=== PATIENT | female | born 1955 | race African-American/Black ===

== ENCOUNTER 2018-12-03 19:58 | Inpatient (IN) | payer MEDICARE, OTHER ==
[~2018-12-03] VITALS: Ht 167.6 cm; Wt 72.1 kg
[~2018-12-03 19:58] MED LIST: ATOR40TA70; CARV3.1242; CLON0.1T; FURO-151; GLIM4TAB2 PO; HYDR100T26; LISI40TA4; SYN150
[2018-12-03] MEDS ORDERED: MORPHINE SULFATE 4 MG/ML CPJ (NOT FOR IM USE) IV STA (20:53)
[2018-12-03] MEDS ORDERED: ONDANSETRON HCL 4MG/2ML INJ IV STA (20:53)
[2018-12-03] MEDS ORDERED: HYDRALAZINE 20MG/ML VIAL IV ONE (21:15)
[2018-12-03 21:29] LABS: CHLORIDE 95 mEq/L (98-107); EOSINOPHILS % 2.9 % (0.0-5.0); HEMATOCRIT. 40.9 % (36.0-48.0); HEMOGLOBIN. 13.6 g/dL (12.0-16.0); LYMPHOCYTES % 22.8 % (20.0-50.0); MEAN CORPUSCULAR HEMOGLOBIN 31.5 pg (28.0-32.0); MEAN CORPUSCULAR VOLUME 94.8 fL (81.0-99.0); MEAN PLATELET VOLUME 8.4 fl (7.4-10.4); MONOCYTES % 8.7 % (2.0-8.0); NEUTROPHILS % 64.6 % (40.0-76.0); PLATELET 202 x1000/uL (130-400); RED BLOOD CELL COUNT 4.31 mill/uL (4.2-5.4); RED CELL DISTRIBUTION WIDTH 17.9 % (11.6-14.6)
[2018-12-03 21:33] LABS: ETHANOL BLOOD < 10 mg/dL; INR 0.9; PARTIAL THROMBOPLASTIN TIME 28.4 sec (23.4-31.0); PROTHROMBIN TIME 9.7 sec (9.6-11.0)
[2018-12-04] VITALS (8 sets, daily range): BP systolic 120–180; BP diastolic 62–81
[2018-12-04 02:40] LABS: *AMPHETAMINES SCREEN URINE NEGATIVE (NEGATIVE)
[2018-12-04 02:42] LABS: *BARBITURATES SCREEN URINE NEGATIVE (NEGATIVE); *COCAINE SCREEN URINE NEGATIVE (NEGATIVE); CANNABINOID URINE SCREEN NEGATIVE (NEGATIVE); METHADONE URINE SCREEN NEGATIVE (NEGATIVE); OPIATES URINE SCREEN NEGATIVE (NEGATIVE); PHENCYCLIDINE URINE SCREEN NEGATIVE (NEGATIVE)
[2018-12-04 02:43] LABS: *BENZODIAZEPINES SCREEN URINE NEGATIVE (NEGATIVE)
[2018-12-04] MEDS ORDERED: DEXTROSE 50% WATER 50ML SYRINGE IV PRN (03:30)
[2018-12-04] MEDS: HYDROCODONE/ACETAMINOPHEN 5/325MG TABLET PO PRN ×2 (05:55→18:26)
[2018-12-04] MEDS: CLONIDINE 0.2MG TABLET PO PRN ×2 (05:55→21:43)
[2018-12-04] MEDS: INSULIN LISPRO 100 UNITS/ML SUBCUT SCH ×4 (07:40→21:00)
[2018-12-04] MEDS: BLOOD SUGAR DIAGNOSTIC STRIP TEST SCH ×4 (08:10→21:56)
[2018-12-04] MEDS: PANTOPRAZOLE 40MG DR TABLET PO SCH (08:12)
[2018-12-04] MEDS: ASPIRIN 81MG EC TABLET PO SCH (09:10)
[2018-12-04] MEDS: HEPARIN 5000 UNITS/ML VIAL SUBCUT SCH ×2 (09:14→21:42)
[2018-12-05] VITALS (7 sets, daily range): BP systolic 127–205; BP diastolic 61–83
[2018-12-05] MEDS: PANTOPRAZOLE 40MG DR TABLET PO SCH (06:26)
[2018-12-05] MEDS: BLOOD SUGAR DIAGNOSTIC STRIP TEST SCH ×3 (06:26→17:10)
[2018-12-05] MEDS: INSULIN LISPRO 100 UNITS/ML SUBCUT SCH ×3 (06:26→17:40)
[2018-12-05] MEDS: ASPIRIN 81MG EC TABLET PO SCH (09:37)
[2018-12-05] MEDS: HEPARIN 5000 UNITS/ML VIAL SUBCUT SCH (09:38)
[2018-12-05] MEDS ORDERED: HYDRALAZINE 20MG/ML VIAL IV PRN (10:45)
[2018-12-05] MEDS ORDERED: AMLODIPINE 5MG TABLET PO NR (13:00)
[2018-12-05] MEDS ORDERED: HYDRALAZINE HCL 50MG TABLET PO SCH (14:00)
[2018-12-05] MEDS ORDERED: AMLODIPINE 5MG TABLET PO SCH (21:00)
== END 2018-12-05 22:00 | disposition home or self-care (01) | DRG 291 ==
LOC: ER 19:58 → 8WST 12-04 00:54 → EDBEDREQ 12-04 00:56 → EDBEDREQDT 12-04 00:56 → EDBEDREQTM 12-04 00:56 → ENRESERV 12-04 01:17
PROVIDERS: ADMIT Internal Medicine; ATTEND Internal Medicine
PROC: 5A1D70Z Performance of Urinary Filtration, Intermittent, Less than 6 Hours Per Day (ICD-10-PCS; principal; 2018-12-04)
DX: I13.2 Hypertensive heart and chronic kidney disease with heart failure and with stage 5 chronic kidney disease, or end stage renal disease (principal); N18.6 End stage renal disease; E03.9 Hypothyroidism, unspecified; E11.22 Type 2 diabetes mellitus with diabetic chronic kidney disease; E78.5 Hyperlipidemia, unspecified; R00.1 Bradycardia, unspecified; I50.9 Heart failure, unspecified; Z99.2 Dependence on renal dialysis; Y92.410 Unspecified street and highway as the place of occurrence of the external cause; Z79.84 Long term (current) use of oral hypoglycemic drugs; Z79.899 Other long term (current) drug therapy; Z83.2 Family history of diseases of the blood and blood-forming organs and certain disorders involving the immune mechanism; Z88.0 Allergy status to penicillin; Z86.73 Personal history of transient ischemic attack (TIA), and cerebral infarction without residual deficits
CPT/HCPCS: 36415; 71045; 80305; 80320; 82962; 83880; 84484; 93005; 99285; J0360; J1644; J2270; J2405; G0480

== ENCOUNTER 2019-04-07 01:23 | Inpatient (IN) | payer MEDICARE, OTHER ==
[~2019-04-07] VITALS: Ht 162.6 cm; Wt 73.0 kg
[~2019-04-07 01:23] MED LIST changes: -CARV3.1242; -CLON0.1T; -GLIM4TAB2 PO; +GLIM4TAB36 PO; -LISI40TA4
[2019-04-07] MEDS ORDERED: SODIUM CHLORIDE 0.9% 1,000 ML IV ONE (02:07)
[2019-04-07 02:29] LABS: BASOPHILS % 0.7 % (0.0-2.0); EOSINOPHILS % 1.8 % (0.0-5.0); HEMATOCRIT. 36.6 % (36.0-48.0); HEMOGLOBIN. 12.3 g/dL (12.0-16.0); LYMPHOCYTES % 21.9 % (20.0-50.0); MEAN CORPUSCULAR HEMOGLOBIN 30.2 pg (28.0-32.0); MEAN PLATELET VOLUME 10.1 fl (7.4-10.4); MONOCYTES % 10.9 % (2.0-8.0); NEUTROPHILS % 64.7 % (40.0-76.0); PLATELET 158 x1000/uL (130-400); RED BLOOD CELL COUNT 4.06 mill/uL (4.2-5.4); RED CELL DISTRIBUTION WIDTH 17.7 % (11.6-14.6)
[2019-04-07 02:30] LABS: CHLORIDE 93 mEq/L (98-107)
[2019-04-07 02:32] LABS: PROTHROMBIN TIME 9.8 sec (9.6-11.0)
[2019-04-07 02:35] LABS: ETHANOL BLOOD < 10 mg/dL
[2019-04-07 02:54] LABS: BG BASE EXCESS 2.9 mmol/L (-2.0-2.0); BG CARBOXYHEMOGLOBIN 0.4 % (0.5-1.5); BG DEOXYHEMOGLOBIN 4.3 % (0.0-5.0); BG FRACTION INSPIRED OXYGEN 21; BG HCO3 ACT 26.9 mmol/L (22.0-26.0); BG OXYGEN SATURATION 95.7 % (92.0-98.5); BG OXYHEMOGLOBIN 95.3 % (94.0-97.0); BG PCO2 39.3 mmHg (35.0-45.0); BG PH 7.454 (7.350-7.450); BG PO2 87.7 mmHg (75.0-100.0); BG SAMPLE SITE LEFT RADIAL; BG TOTAL HEMOGLOBIN 10.7 g/dL (12.0-18.0); BG VENT MODE ROOM AIR
[2019-04-07] MEDS ORDERED: HYDROCORTISONE SOD SUCCINATE 100 MG/2 ML VIAL IV ONE (04:45)
[2019-04-07] MEDS ORDERED: CLONIDINE 0.2MG TABLET PO SCH (14:45)
[2019-04-07 15:30] VITALS: BP 225/91
[2019-04-07 16:00] VITALS: BP 225/91
[2019-04-07] MEDS: HYDRALAZINE 20MG/ML VIAL IV PRN (16:00)
[2019-04-07] MEDS: LEVOTHYROXINE SODIUM 150MCG TABLET PO SCH (17:28)
[2019-04-07 18:00] VITALS: BP 174/71
[2019-04-07 20:00] VITALS: BP 127/62
[2019-04-08] VITALS: BP 132/57
[2019-04-08 04:00] VITALS: BP 175/70
[2019-04-08 08:00] VITALS: BP 138/87
[2019-04-08] MEDS: LEVOTHYROXINE SODIUM 150MCG TABLET PO SCH (08:51)
[2019-04-08] MEDS ORDERED: HYDROCODONE/ACETAMINOPHEN 5/325MG TABLET PO PRN (10:15)
[2019-04-08 12:00] VITALS: BP 143/68
[2019-04-08] MEDS: HYDRALAZINE HCL 50MG TABLET PO SCH ×2 (14:00→22:13)
[2019-04-08] MEDS ORDERED: SYN150 MT (15:00)
[2019-04-08] MEDS ORDERED: HYDR-4135 MT (15:00)
[2019-04-08 16:00] VITALS: BP 106/51
[2019-04-08 18:11] LABS: T4 FREE 0.68 ng/dL (0.76-1.46)
[2019-04-08 20:00] VITALS: BP 123/72
[2019-04-09] VITALS (8 sets, daily range): BP systolic 148–196; BP diastolic 57–81
[2019-04-09] MEDS: HYDRALAZINE 20MG/ML VIAL IV PRN (05:18)
[2019-04-09] MEDS: HYDRALAZINE HCL 50MG TABLET PO SCH ×3 (06:13→21:51)
[2019-04-09 06:31] LABS: HEMATOCRIT 28.2 % (36.0-48.0); HEMOGLOBIN 9.5 g/dL (12.0-16.0); MEAN CORPUSCULAR HEMOGLOBIN 30.4 pg (28.0-32.0); PLATELET 133 x1000/uL (130-400); RED BLOOD CELL COUNT 3.14 mill/uL (4.2-5.4); RED CELL DISTRIBUTION WIDTH 17.8 % (11.6-14.6)
[2019-04-09] MEDS: LEVOTHYROXINE SODIUM 150MCG TABLET PO SCH (08:17)
[2019-04-09] MEDS ORDERED: IPRATROPIUM/ALBUTEROL 0.5-3(2.5)MG/3ML NEB HHN PRN (15:45)
[2019-04-09] MEDS ORDERED: BISACODYL 10MG SUPP PR PRN (15:45)
[2019-04-09] MEDS ORDERED: ONDANSETRON HCL 4MG/2ML INJ IV PRN (15:45)
[2019-04-09] MEDS ORDERED: DIPHENHYDRAMINE 50MG/ML VIAL IV PRN (15:45)
[2019-04-09] MEDS ORDERED: ACETAMINOPHEN 650MG SUPP PR PRN (15:45)
[2019-04-09] MEDS ORDERED: ACETAMINOPHEN 325MG TABLET PO PRN (15:45)
[2019-04-09] MEDS ORDERED: EPOETIN ALFA 4000UNITS/ML VIAL SUBCUT SCH (21:00)
[2019-04-10] VITALS (9 sets, daily range): BP systolic 155–191; BP diastolic 67–81
[2019-04-10] MEDS: HYDRALAZINE HCL 50MG TABLET PO SCH (05:48)
[2019-04-10 07:54] LABS: HEMATOCRIT 27.1 % (36.0-48.0); HEMOGLOBIN 9.3 g/dL (12.0-16.0); MEAN CORPUSCULAR HEMOGLOBIN 31.2 pg (28.0-32.0); MEAN CORPUSCULAR VOLUME 90.9 fL (81.0-99.0); PLATELET 137 x1000/uL (130-400); RED BLOOD CELL COUNT 2.99 mill/uL (4.2-5.4); RED CELL DISTRIBUTION WIDTH 17.7 % (11.6-14.6)
[2019-04-10] MEDS: LEVOTHYROXINE SODIUM 150MCG TABLET PO SCH (08:16)
[2019-04-10] MEDS: HYDRALAZINE 20MG/ML VIAL IV PRN ×2 (09:56→16:45)
[2019-04-10] MEDS: HYDRALAZINE HCL 100MG TABLET PO SCH ×2 (15:15→22:40)
[2019-04-10] MEDS ORDERED: CLONIDINE 0.1MG TABLET PO PRN (18:15)
[2019-04-10] MEDS ORDERED: AMLODIPINE 10MG TABLET PO NR (18:17)
[2019-04-11] VITALS: BP 156/72
[2019-04-11 04:00] VITALS: BP 185/65
[2019-04-11] MEDS: HYDRALAZINE HCL 100MG TABLET PO SCH ×2 (05:34→15:02)
[2019-04-11] MEDS: HYDRALAZINE 20MG/ML VIAL IV PRN (06:30)
[2019-04-11] MEDS: LEVOTHYROXINE SODIUM 150MCG TABLET PO SCH (07:43)
[2019-04-11 08:00] VITALS: BP 166/65
[2019-04-11] MEDS ORDERED: AMLODIPINE 10MG TABLET PO SCH (09:00)
[2019-04-11 10:00] VITALS: BP 129/54
[2019-04-11 12:00] VITALS: BP 155/81
== END 2019-04-11 16:13 | DRG 304 ==
LOC: ER 01:49 → 7WST 05:24 → EDBEDREQ 05:33 → EDBEDREQTM 05:33 → ENRESERV 14:11 → 7WST 15:38
PROVIDERS: ADMIT Internal Medicine; ATTEND Internal Medicine
PROC: 5A1D70Z Performance of Urinary Filtration, Intermittent, Less than 6 Hours Per Day (ICD-10-PCS; principal; 2019-04-08)
PROC: 5A1D70Z Performance of Urinary Filtration, Intermittent, Less than 6 Hours Per Day (ICD-10-PCS; 2019-04-09)
PROC: 5A1D70Z Performance of Urinary Filtration, Intermittent, Less than 6 Hours Per Day (ICD-10-PCS; 2019-04-11)
DX: I16.0 Hypertensive urgency (principal); N18.6 End stage renal disease; G93.40 Encephalopathy, unspecified; I12.0 Hypertensive chronic kidney disease with stage 5 chronic kidney disease or end stage renal disease; E03.9 Hypothyroidism, unspecified; E11.22 Type 2 diabetes mellitus with diabetic chronic kidney disease; E78.5 Hyperlipidemia, unspecified; Z86.73 Personal history of transient ischemic attack (TIA), and cerebral infarction without residual deficits; Z99.2 Dependence on renal dialysis; Z91.19 Patient's noncompliance with other medical treatment and regimen; Z88.0 Allergy status to penicillin; Z79.84 Long term (current) use of oral hypoglycemic drugs
CPT/HCPCS: 36415; 36600; 70551; 71045; 80048; 80053; 80307; 80320; 80329; 82140; 82375; 82805; 82962; 83605; 84439; 84443; 84481; 84484; 85025; 85027; 93005; 97116; 97162; 99285; J0360; J0885; J1720; J7030; G0480

== ENCOUNTER 2021-01-17 13:41 | Inpatient (IN) | payer MEDICARE, MEDICAID, OTHER ==
[~2021-01-17] VITALS: Ht 170.2 cm; Wt 68.5 kg
[~2021-01-17 13:41] MED LIST changes: -GLIM4TAB36 PO; +HYDR-4135 MT; +SYN150 MT
[2021-01-17] MEDS ORDERED: LABETALOL 5MG/ML SYR 20 MG/4 ML SYRINGE IV ONE (14:45)
[2021-01-17 14:54] LABS: BASOPHILS % 0.5 % (0.0-2.0); EOSINOPHILS % 0.9 % (0.0-5.0); HEMATOCRIT. 36.4 % (36.0-48.0); HEMOGLOBIN. 11.9 g/dL (12.0-16.0); LYMPHOCYTES % 8.6 % (20.0-50.0); MEAN CORPUSCULAR HEMOGLOBIN 30.3 pg (28.0-32.0); MEAN CORPUSCULAR VOLUME 93.1 fL (81.0-99.0); MEAN PLATELET VOLUME 7.9 fl (7.4-10.4); MONOCYTES % 7.1 % (2.0-8.0); NEUTROPHILS % 82.9 % (40.0-76.0); PLATELET 141 x1000/uL (130-400); RED BLOOD CELL COUNT 3.91 mill/uL (4.2-5.4); RED CELL DISTRIBUTION WIDTH 18.6 % (11.6-14.6)
[2021-01-17 14:55] LABS: CHLORIDE 100 mEq/L (98-107)
[2021-01-17] MEDS ORDERED: ONDANSETRON HCL 4MG/2ML INJ IV NR (15:45)
[2021-01-17] MEDS ORDERED: MORPHINE SULFATE 4 MG/ML CPJ (NOT FOR IM USE) IV NR (15:45)
[2021-01-17 15:59] LABS: CREATINE KINASE 125 IU/L (26-192)
[2021-01-17] MEDS ORDERED: MORPHINE SULFATE 4 MG/ML CPJ (NOT FOR IM USE) IV ONE (19:30)
[2021-01-18] VITALS (9 sets, daily range): BP systolic 186–237; BP diastolic 66–97
[2021-01-18] MEDS ORDERED: MORPHINE SULFATE 4 MG/ML CPJ (NOT FOR IM USE) IV PRN (01:45)
[2021-01-18] MEDS ORDERED: NALOXONE HCL 0.4 MG/ML 1ML VIAL IV PRN (02:00)
[2021-01-18] MEDS ORDERED: MORPHINE SULFATE 2 MG/ML CPJ (NOT FOR IM USE) IV PRN (03:15)
[2021-01-18] MEDS: HYDRALAZINE HCL 100MG TABLET PO SCH ×5 (03:40→22:49)
[2021-01-18] MEDS: CLONIDINE 0.1MG TABLET PO PRN ×3 (03:41→20:41)
[2021-01-18] MEDS: LEVOTHYROXINE SODIUM 150MCG TABLET PO SCH (06:03)
[2021-01-18] MEDS: HYDRALAZINE 20MG/ML VIAL IV PRN (06:04)
[2021-01-18] MEDS: FUROSEMIDE 40MG TABLET PO SCH (08:27)
[2021-01-18 08:40] LABS: BASOPHILS % 1.1 % (0.0-2.0); EOSINOPHILS % 3.2 % (0.0-5.0); HEMATOCRIT. 36.5 % (36.0-48.0); HEMOGLOBIN. 11.7 g/dL (12.0-16.0); LYMPHOCYTES % 14.1 % (20.0-50.0); MEAN CORPUSCULAR VOLUME 93.5 fL (81.0-99.0); MEAN PLATELET VOLUME 8.7 fl (7.4-10.4); MONOCYTES % 9.6 % (2.0-8.0); PLATELET 156 x1000/uL (130-400); RED BLOOD CELL COUNT 3.91 mill/uL (4.2-5.4); RED CELL DISTRIBUTION WIDTH 19.9 % (11.6-14.6)
[2021-01-18] MEDS ORDERED: NIFEDIPINE XL 60MG TAB PO SCH (09:00)
[2021-01-18] MEDS: HYDROCODONE/ACETAMINOPHEN 5/325MG TABLET PO PRN (14:10)
[2021-01-18 17:01] LABS: CHLORIDE 99 mEq/L (98-107)
[2021-01-18 17:29] LABS: HEPATITIS B SURFACE ANTIGEN NEGATIVE
[2021-01-18] MEDS: ATORVASTATIN CALCIUM 40MG TABLET PO SCH (21:34)
[2021-01-19] VITALS: BP 144/78
[2021-01-19 04:00] VITALS: BP 161/68
[2021-01-19] MEDS: HYDRALAZINE HCL 100MG TABLET PO SCH ×3 (05:09→21:52)
[2021-01-19] MEDS: LEVOTHYROXINE SODIUM 150MCG TABLET PO SCH (07:53)
[2021-01-19 08:09] VITALS: BP 188/81
[2021-01-19] MEDS: FUROSEMIDE 40MG TABLET PO SCH (08:50)
[2021-01-19] MEDS: NIFEDIPINE XL 60MG TAB PO SCH ×2 (08:52→20:24)
[2021-01-19 12:00] VITALS: BP 180/75
[2021-01-19 16:00] VITALS: BP 165/53
[2021-01-19 20:00] VITALS: BP 163/66
[2021-01-19] MEDS: ATORVASTATIN CALCIUM 40MG TABLET PO SCH (21:51)
[2021-01-19] MEDS: MINOXIDIL 2.5MG TABLET PO SCH (21:52)
[2021-01-20] VITALS (7 sets, daily range): BP systolic 139–215; BP diastolic 69–80
[2021-01-20] MEDS: HYDRALAZINE 20MG/ML VIAL IV PRN (00:54)
[2021-01-20] MEDS: CLONIDINE 0.1MG TABLET PO PRN (02:08)
[2021-01-20] MEDS: HYDRALAZINE HCL 100MG TABLET PO SCH ×3 (06:10→23:55)
[2021-01-20] MEDS: LEVOTHYROXINE SODIUM 150MCG TABLET PO SCH (06:10)
[2021-01-20] MEDS: FUROSEMIDE 40MG TABLET PO SCH (09:19)
[2021-01-20] MEDS: NIFEDIPINE XL 60MG TAB PO SCH ×2 (09:21→23:56)
[2021-01-20] MEDS: HYDROCODONE/ACETAMINOPHEN 5/325MG TABLET PO PRN ×2 (09:21→18:00)
[2021-01-20] MEDS: MINOXIDIL 2.5MG TABLET PO SCH ×2 (09:22→23:56)
[2021-01-20] MEDS: ATORVASTATIN CALCIUM 40MG TABLET PO SCH (23:55)
[2021-01-21] VITALS: BP 177/80
[2021-01-21 04:00] VITALS: BP 197/80
[2021-01-21] MEDS: HYDRALAZINE HCL 100MG TABLET PO SCH ×2 (06:19→13:09)
[2021-01-21] MEDS: LEVOTHYROXINE SODIUM 150MCG TABLET PO SCH (06:20)
[2021-01-21 08:00] VITALS: BP 190/83
[2021-01-21 08:29] LABS: BASOPHILS % 0.7 % (0.0-2.0); EOSINOPHILS % 3.7 % (0.0-5.0); HEMATOCRIT. 35.4 % (36.0-48.0); HEMOGLOBIN. 11.4 g/dL (12.0-16.0); MEAN CORPUSCULAR VOLUME 92.7 fL (81.0-99.0); NEUTROPHILS % 70.6 % (40.0-76.0); PLATELET 132 x1000/uL (130-400); RED BLOOD CELL COUNT 3.82 mill/uL (4.2-5.4); RED CELL DISTRIBUTION WIDTH 18.3 % (11.6-14.6)
[2021-01-21] MEDS: MINOXIDIL 2.5MG TABLET PO SCH (08:55)
[2021-01-21] MEDS: NIFEDIPINE XL 60MG TAB PO SCH (08:55)
[2021-01-21] MEDS: FUROSEMIDE 40MG TABLET PO SCH (08:56)
[2021-01-21] MEDS: HYDRALAZINE 20MG/ML VIAL IV PRN (08:56)
[2021-01-21 12:00] VITALS: BP 167/77
[2021-01-21 16:00] VITALS: BP 123/57
[2021-01-21] MEDS: HYDROCODONE/ACETAMINOPHEN 5/325MG TABLET PO PRN (16:51)
[2021-01-21 17:30] VITALS: BP 123/57
[2021-01-21] MEDS ORDERED: MINOXIDIL 2.5MG TABLET PO SCH (21:00)
== END 2021-01-21 18:25 | disposition home health service (06) | DRG 682 ==
LOC: ER 13:41 → EDBEDREQTM 20:55 → EDBEDREQ 20:55 → ENRESERV 23:34 → 8WST 01-18 02:56
PROVIDERS: ADMIT Internal Medicine; ATTEND Internal Medicine
PROC: 5A1D70Z Performance of Urinary Filtration, Intermittent, Less than 6 Hours Per Day (ICD-10-PCS; principal; 2021-01-18)
PROC: 5A1D70Z Performance of Urinary Filtration, Intermittent, Less than 6 Hours Per Day (ICD-10-PCS; 2021-01-20)
PROC: 5A1D70Z Performance of Urinary Filtration, Intermittent, Less than 6 Hours Per Day (ICD-10-PCS; 2021-01-20)
DX: I13.11 Hypertensive heart and chronic kidney disease without heart failure, with stage 5 chronic kidney disease, or end stage renal disease (principal); N18.6 End stage renal disease; E03.9 Hypothyroidism, unspecified; I16.0 Hypertensive urgency; G89.29 Other chronic pain; E11.22 Type 2 diabetes mellitus with diabetic chronic kidney disease; E78.5 Hyperlipidemia, unspecified; E87.5 Hyperkalemia; Z99.2 Dependence on renal dialysis; Z88.0 Allergy status to penicillin; Z79.899 Other long term (current) drug therapy; Z86.73 Personal history of transient ischemic attack (TIA), and cerebral infarction without residual deficits
CPT/HCPCS: 36415; 71045; 72170; 73080; 73562; 80048; 80053; 82550; 84484; 85025; 86705; 86709; 86803; 87340; 93005; 97162; 99285; C1893; J0360; J2270; J2405; J3490

== ENCOUNTER 2021-04-12 21:21 | Inpatient (IN) | payer MEDICARE, OTHER ==
[~2021-04-12] VITALS: Ht 167.6 cm; Wt 76.7 kg
[~2021-04-12 21:21] MED LIST changes: -SYN150
[2021-04-12] MEDS ORDERED: LABETALOL 5MG/ML SYR 20 MG/4 ML SYRINGE IV NR (22:15)
[2021-04-12 22:37] LABS: HEMATOCRIT. 30.9 % (36.0-48.0); HEMOGLOBIN. 10.2 g/dL (12.0-16.0); MEAN CORPUSCULAR HEMOGLOBIN 30.6 pg (28.0-32.0); MEAN CORPUSCULAR VOLUME 92.6 fL (81.0-99.0); MEAN PLATELET VOLUME 8.5 fl (7.4-10.4); PLATELET 175 x1000/uL (130-400); RED BLOOD CELL COUNT 3.34 mill/uL (4.2-5.4); RED CELL DISTRIBUTION WIDTH 18.6 % (11.6-14.6)
[2021-04-12 22:43] LABS: CHLORIDE 102 mEq/L (98-107)
[2021-04-12 22:47] LABS: ETHANOL BLOOD < 10 mg/dL
[2021-04-12 23:19] LABS: PLATELET ESTIMATE NORMAL
[2021-04-12] MEDS ORDERED: IOHEXOL-350 100 ML BOTTLE ONE (23:27)
[2021-04-13] VITALS (12 sets, daily range): BP systolic 112–227; BP diastolic 63–118
[2021-04-13] MEDS ORDERED: DEXTROSE 50% WATER 50ML SYRINGE IV SCH
[2021-04-13] MEDS ORDERED: FUROSEMIDE 40MG/4ML VIAL IVP SCH
[2021-04-13] MEDS ORDERED: CALCIUM CHLORIDE 1GM/10ML SYR IV SCH
[2021-04-13] MEDS ORDERED: INSULIN REGULAR (HUMULIN R) 300UNITS/3ML VIAL IV SCH
[2021-04-13] MEDS ORDERED: SODIUM POLYSTYRENE SULFONATE 15 G/60 ML BOT PO SCH (00:30)
[2021-04-13] MEDS ORDERED: ZOLPIDEM TARTRATE 5MG TABLET PO PRN (00:30)
[2021-04-13] MEDS ORDERED: ACETAMINOPHEN 325MG TABLET PO PRN (00:30)
[2021-04-13] MEDS: SODIUM CHLORIDE 0.9% INJ 3ML FLUSH IVF SCH ×3 (05:55→23:07)
[2021-04-13] MEDS: HYDRALAZINE HCL 100MG TABLET PO SCH ×3 (06:00→23:06)
[2021-04-13] MEDS: LEVOTHYROXINE SODIUM 150MCG TABLET PO SCH (07:50)
[2021-04-13] MEDS ORDERED: CALCIUM CHLORIDE 1GM/10ML SYR IV ONE ×2 (08:30)
[2021-04-13] MEDS ORDERED: INSULIN REGULAR (HUMULIN R) 300UNITS/3ML VIAL IV ONE ×2 (08:30)
[2021-04-13] MEDS ORDERED: DEXTROSE 50% WATER 50ML SYRINGE IV ONE ×2 (08:30)
[2021-04-13] MEDS: NIFEDIPINE XL 60MG TAB PO SCH ×2 (09:00→20:31)
[2021-04-13] MEDS: MINOXIDIL 2.5MG TABLET PO SCH ×2 (09:00→17:25)
[2021-04-13] MEDS: ONDANSETRON HCL 4MG/2ML INJ IV PRN ×2 (09:18→23:55)
[2021-04-13 09:43] LABS: CLARITY URINE CLEAR (CLEAR); COLOR URINE YELLOW (YELLOW); KETONES URINE NEGATIVE (NEGATIVE); LEUKOCYTE ESTERASE URINE NEGATIVE (NEGATIVE); NITRITE URINE NEGATIVE (NEGATIVE); OCCULT BLOOD URINE TRACE (NEGATIVE); PH URINE >=9.0 (4.5-8.0); PROTEIN URINE 3+ (NEGATIVE); UROBILINOGEN URINE 0.2 E.U./dL (0.2-1.0)
[2021-04-13 10:08] LABS: *BARBITURATES SCREEN URINE NEGATIVE (NEGATIVE)
[2021-04-13 10:09] LABS: *BENZODIAZEPINES SCREEN URINE NEGATIVE (NEGATIVE); *COCAINE SCREEN URINE NEGATIVE (NEGATIVE); CANNABINOID URINE SCREEN NEGATIVE (NEGATIVE); METHADONE URINE SCREEN NEGATIVE (NEGATIVE); OPIATES URINE SCREEN NEGATIVE (NEGATIVE); PHENCYCLIDINE URINE SCREEN NEGATIVE (NEGATIVE)
[2021-04-13 10:10] LABS: *AMPHETAMINES SCREEN URINE NEGATIVE (NEGATIVE)
[2021-04-13] MEDS: HYDRALAZINE 20MG/ML VIAL IV PRN ×2 (11:51→15:52)
[2021-04-13 14:31] LABS: HEPATITIS B SURFACE ANTIGEN NEGATIVE
[2021-04-13] MEDS ORDERED: LABETALOL 5MG/ML SYR 20 MG/4 ML SYRINGE IV NR (16:15)
[2021-04-13] MEDS: CLONIDINE 0.1MG TABLET PO PRN (20:31)
[2021-04-13] MEDS: ATORVASTATIN CALCIUM 40MG TABLET PO SCH (20:31)
[2021-04-14] VITALS (15 sets, daily range): BP systolic 123–195; BP diastolic 58–94
[2021-04-14] MEDS: CLONIDINE 0.1MG TABLET PO PRN ×2 (01:29→05:50)
[2021-04-14] MEDS: HYDRALAZINE 20MG/ML VIAL IV PRN (04:38)
[2021-04-14] MEDS: SODIUM CHLORIDE 0.9% INJ 3ML FLUSH IVF SCH ×3 (05:48→21:40)
[2021-04-14] MEDS: HYDRALAZINE HCL 100MG TABLET PO SCH ×3 (05:50→21:39)
[2021-04-14] MEDS: MINOXIDIL 2.5MG TABLET PO SCH ×3 (09:00→17:53)
[2021-04-14] MEDS: NIFEDIPINE XL 60MG TAB PO SCH ×2 (09:00→21:39)
[2021-04-14] MEDS: LEVOTHYROXINE SODIUM 150MCG TABLET PO SCH (09:02)
[2021-04-14] MEDS: ATORVASTATIN CALCIUM 40MG TABLET PO SCH (21:38)
[2021-04-15] VITALS (16 sets, daily range): BP systolic 135–210; BP diastolic 58–90
[2021-04-15] MEDS: SODIUM CHLORIDE 0.9% INJ 3ML FLUSH IVF SCH ×3 (06:00→22:26)
[2021-04-15] MEDS: HYDRALAZINE HCL 100MG TABLET PO SCH ×3 (06:00→22:26)
[2021-04-15] MEDS: LEVOTHYROXINE SODIUM 150MCG TABLET PO SCH (08:01)
[2021-04-15] MEDS: NIFEDIPINE XL 60MG TAB PO SCH (08:01)
[2021-04-15] MEDS: MINOXIDIL 2.5MG TABLET PO SCH ×2 (08:01→17:00)
[2021-04-15] MEDS: HYDRALAZINE 20MG/ML VIAL IV PRN (10:39)
[2021-04-15] MEDS: AMLODIPINE 10MG TABLET NG SCH (11:45)
[2021-04-15 12:11] LABS: EOSINOPHILS % 1.3 % (0.0-5.0); HEMATOCRIT. 33.4 % (36.0-48.0); HEMOGLOBIN. 10.9 g/dL (12.0-16.0); LYMPHOCYTES % 9.9 % (20.0-50.0); MEAN CORPUSCULAR HEMOGLOBIN 30.2 pg (28.0-32.0); MEAN CORPUSCULAR VOLUME 92.2 fL (81.0-99.0); MONOCYTES % 11.9 % (2.0-8.0); NEUTROPHILS % 75.9 % (40.0-76.0); PLATELET 164 x1000/uL (130-400); RED BLOOD CELL COUNT 3.62 mill/uL (4.2-5.4); RED CELL DISTRIBUTION WIDTH 17.9 % (11.6-14.6)
[2021-04-15] MEDS: ATORVASTATIN CALCIUM 40MG TABLET PO SCH (22:26)
[2021-04-16] VITALS (12 sets, daily range): BP systolic 122–152; BP diastolic 52–74
[2021-04-16] MEDS: HYDRALAZINE HCL 100MG TABLET PO SCH ×3 (05:36→21:30)
[2021-04-16] MEDS: SODIUM CHLORIDE 0.9% INJ 3ML FLUSH IVF SCH ×3 (05:36→21:30)
[2021-04-16] MEDS: MINOXIDIL 2.5MG TABLET PO SCH ×2 (09:00→17:10)
[2021-04-16] MEDS: AMLODIPINE 10MG TABLET NG SCH (09:00)
[2021-04-16] MEDS: LEVOTHYROXINE SODIUM 150MCG TABLET PO SCH (09:00)
[2021-04-16] MEDS ORDERED: DIPHENOXYLATE/ATROPINE 2.5/0.025MG TABLET PO PRN (20:00)
[2021-04-16] MEDS: ATORVASTATIN CALCIUM 40MG TABLET PO SCH (20:21)
[2021-04-17] VITALS (14 sets, daily range): BP systolic 119–154; BP diastolic 46–86
[2021-04-17] MEDS: SODIUM CHLORIDE 0.9% INJ 3ML FLUSH IVF SCH ×3 (05:11→20:59)
[2021-04-17] MEDS: HYDRALAZINE HCL 100MG TABLET PO SCH ×3 (05:11→20:59)
[2021-04-17 06:35] LABS: BASOPHILS % 0.9 % (0.0-2.0); EOSINOPHILS % 2.5 % (0.0-5.0); HEMATOCRIT. 32.1 % (36.0-48.0); HEMOGLOBIN. 10.6 g/dL (12.0-16.0); LYMPHOCYTES % 15.9 % (20.0-50.0); MEAN CORPUSCULAR HEMOGLOBIN 30.4 pg (28.0-32.0); MEAN CORPUSCULAR VOLUME 92.5 fL (81.0-99.0); MEAN PLATELET VOLUME 8.6 fl (7.4-10.4); MONOCYTES % 10.3 % (2.0-8.0); NEUTROPHILS % 70.4 % (40.0-76.0); PLATELET 143 x1000/uL (130-400); RED BLOOD CELL COUNT 3.47 mill/uL (4.2-5.4); RED CELL DISTRIBUTION WIDTH 17.2 % (11.6-14.6)
[2021-04-17] MEDS: LEVOTHYROXINE SODIUM 150MCG TABLET PO SCH (08:21)
[2021-04-17] MEDS: AMLODIPINE 10MG TABLET NG SCH (08:22)
[2021-04-17] MEDS: MINOXIDIL 2.5MG TABLET PO SCH ×2 (08:26→18:12)
[2021-04-17] MEDS: ATORVASTATIN CALCIUM 40MG TABLET PO SCH (20:33)
[2021-04-18] VITALS (13 sets, daily range): BP systolic 102–157; BP diastolic 47–77
[2021-04-18] MEDS: CLONIDINE 0.1MG TABLET PO PRN (03:38)
[2021-04-18] MEDS: SODIUM CHLORIDE 0.9% INJ 3ML FLUSH IVF SCH ×3 (05:22→21:10)
[2021-04-18] MEDS: HYDRALAZINE HCL 100MG TABLET PO SCH ×3 (05:23→21:09)
[2021-04-18] MEDS: ACETAMINOPHEN 325MG TABLET PO PRN (08:39)
[2021-04-18] MEDS: LEVOTHYROXINE SODIUM 175MCG TABLET PO SCH (08:39)
[2021-04-18] MEDS: AMLODIPINE 10MG TABLET NG SCH (08:39)
[2021-04-18] MEDS: MINOXIDIL 2.5MG TABLET PO SCH ×2 (08:40→18:36)
[2021-04-18 11:02] LABS: HEPATITIS B SURFACE ANTIGEN NEGATIVE
[2021-04-18] MEDS: ATORVASTATIN CALCIUM 40MG TABLET PO SCH (21:09)
[2021-04-19] VITALS (12 sets, daily range): BP systolic 108–170; BP diastolic 46–66
[2021-04-19] MEDS: LEVOTHYROXINE SODIUM 175MCG TABLET PO SCH ×2 (06:34→09:08)
[2021-04-19] MEDS: HYDRALAZINE HCL 100MG TABLET PO SCH ×3 (06:35→21:36)
[2021-04-19] MEDS: SODIUM CHLORIDE 0.9% INJ 3ML FLUSH IVF SCH ×3 (06:35→21:37)
[2021-04-19] MEDS: MINOXIDIL 2.5MG TABLET PO SCH ×2 (09:08→17:00)
[2021-04-19] MEDS: AMLODIPINE 10MG TABLET NG SCH (09:08)
[2021-04-19] MEDS: ATORVASTATIN CALCIUM 40MG TABLET PO SCH (21:36)
[2021-04-20] VITALS (12 sets, daily range): BP systolic 113–168; BP diastolic 53–68
[2021-04-20] MEDS: HYDRALAZINE HCL 100MG TABLET PO SCH ×3 (05:18→21:32)
[2021-04-20] MEDS: SODIUM CHLORIDE 0.9% INJ 3ML FLUSH IVF SCH ×3 (05:19→21:32)
[2021-04-20] MEDS: MINOXIDIL 2.5MG TABLET PO SCH ×2 (08:53→16:46)
[2021-04-20] MEDS: AMLODIPINE 10MG TABLET NG SCH (08:53)
[2021-04-20] MEDS: ATORVASTATIN CALCIUM 40MG TABLET PO SCH (21:31)
[2021-04-21] VITALS (10 sets, daily range): BP systolic 114–152; BP diastolic 49–64
[2021-04-21] MEDS: HYDRALAZINE HCL 100MG TABLET PO SCH ×3 (05:17→21:20)
[2021-04-21] MEDS: SODIUM CHLORIDE 0.9% INJ 3ML FLUSH IVF SCH ×3 (05:18→21:20)
[2021-04-21] MEDS: MINOXIDIL 2.5MG TABLET PO SCH ×2 (08:58→17:08)
[2021-04-21] MEDS: AMLODIPINE 10MG TABLET NG SCH (08:58)
[2021-04-21] MEDS: LEVOTHYROXINE SODIUM 175MCG TABLET PO SCH (08:58)
[2021-04-21 18:25] LABS: HEPATITIS B SURFACE ANTIGEN NEGATIVE
[2021-04-21] MEDS: ATORVASTATIN CALCIUM 40MG TABLET PO SCH (21:20)
[2021-04-22] VITALS: BP 158/61
[2021-04-22 04:00] VITALS: BP 155/59
[2021-04-22] MEDS: SODIUM CHLORIDE 0.9% INJ 3ML FLUSH IVF SCH ×3 (06:21→21:45)
[2021-04-22] MEDS: HYDRALAZINE HCL 100MG TABLET PO SCH ×3 (06:21→21:45)
[2021-04-22] MEDS: LEVOTHYROXINE SODIUM 175MCG TABLET PO SCH (06:21)
[2021-04-22 08:00] VITALS: BP 163/62
[2021-04-22] MEDS: MINOXIDIL 2.5MG TABLET PO SCH ×2 (09:27→17:39)
[2021-04-22] MEDS: CLONIDINE 0.1MG TABLET PO PRN (09:27)
[2021-04-22] MEDS: AMLODIPINE 10MG TABLET NG SCH (09:27)
[2021-04-22 12:00] VITALS: BP 138/61
[2021-04-22 16:00] VITALS: BP 141/54
[2021-04-22 20:00] VITALS: BP 124/80
[2021-04-22] MEDS: ATORVASTATIN CALCIUM 40MG TABLET PO SCH (21:45)
[2021-04-23] VITALS: BP 136/50
[2021-04-23 04:09] VITALS: BP 130/54
[2021-04-23] MEDS: LEVOTHYROXINE SODIUM 175MCG TABLET PO SCH (06:34)
[2021-04-23] MEDS: HYDRALAZINE HCL 100MG TABLET PO SCH ×3 (06:34→21:11)
[2021-04-23] MEDS: SODIUM CHLORIDE 0.9% INJ 3ML FLUSH IVF SCH ×3 (06:34→21:11)
[2021-04-23 08:00] VITALS: BP 161/64
[2021-04-23] MEDS: AMLODIPINE 10MG TABLET NG SCH (09:25)
[2021-04-23] MEDS: MINOXIDIL 2.5MG TABLET PO SCH ×2 (09:25→16:33)
[2021-04-23 12:00] VITALS: BP 124/55
[2021-04-23 16:00] VITALS: BP 122/47
[2021-04-23 20:00] VITALS: BP 130/52
[2021-04-23] MEDS: ATORVASTATIN CALCIUM 40MG TABLET PO SCH (21:11)
[2021-04-24] VITALS: BP 143/64
[2021-04-24 04:00] VITALS: BP 133/49
[2021-04-24] MEDS: LEVOTHYROXINE SODIUM 175MCG TABLET PO SCH (06:27)
[2021-04-24] MEDS: SODIUM CHLORIDE 0.9% INJ 3ML FLUSH IVF SCH ×3 (06:27→20:32)
[2021-04-24] MEDS: HYDRALAZINE HCL 100MG TABLET PO SCH ×3 (06:27→22:00)
[2021-04-24 08:00] VITALS: BP 133/52
[2021-04-24] MEDS: AMLODIPINE 10MG TABLET NG SCH (08:48)
[2021-04-24] MEDS: MINOXIDIL 2.5MG TABLET PO SCH ×2 (08:48→16:56)
[2021-04-24 12:00] VITALS: BP 135/55
[2021-04-24 16:00] VITALS: BP 157/64
[2021-04-24 20:28] VITALS: BP 109/45
[2021-04-24] MEDS: ATORVASTATIN CALCIUM 40MG TABLET PO SCH (20:32)
[2021-04-25] VITALS: BP 165/68
[2021-04-25] MEDS: HYDRALAZINE 20MG/ML VIAL IV PRN (00:05)
[2021-04-25 04:00] VITALS: BP 142/56
[2021-04-25] MEDS: ACETAMINOPHEN 325MG TABLET PO PRN (05:10)
[2021-04-25] MEDS: HYDRALAZINE HCL 100MG TABLET PO SCH ×3 (05:10→21:25)
[2021-04-25] MEDS: LEVOTHYROXINE SODIUM 175MCG TABLET PO SCH (06:30)
[2021-04-25] MEDS: SODIUM CHLORIDE 0.9% INJ 3ML FLUSH IVF SCH ×3 (07:33→21:29)
[2021-04-25 08:00] VITALS: BP 145/59
[2021-04-25] MEDS: MINOXIDIL 2.5MG TABLET PO SCH ×2 (09:00→18:10)
[2021-04-25] MEDS: AMLODIPINE 10MG TABLET NG SCH (09:00)
[2021-04-25 12:00] VITALS: BP 137/55
[2021-04-25 16:00] VITALS: BP 140/61
[2021-04-25 20:00] VITALS: BP 126/50
[2021-04-25] MEDS: ATORVASTATIN CALCIUM 40MG TABLET PO SCH (21:29)
[2021-04-26] VITALS: BP 114/43
[2021-04-26 04:00] VITALS: BP 109/44
[2021-04-26] MEDS: HYDRALAZINE HCL 100MG TABLET PO SCH ×3 (06:00→21:15)
[2021-04-26] MEDS: LEVOTHYROXINE SODIUM 175MCG TABLET PO SCH (06:36)
[2021-04-26] MEDS: SODIUM CHLORIDE 0.9% INJ 3ML FLUSH IVF SCH ×3 (06:37→21:14)
[2021-04-26 08:00] VITALS: BP 127/46
[2021-04-26] MEDS: AMLODIPINE 10MG TABLET NG SCH (09:10)
[2021-04-26] MEDS: MINOXIDIL 2.5MG TABLET PO SCH ×2 (09:11→17:30)
[2021-04-26 12:00] VITALS: BP 123/47
[2021-04-26 16:00] VITALS: BP 123/84
[2021-04-26 20:00] VITALS: BP 109/47
[2021-04-26] MEDS: ATORVASTATIN CALCIUM 40MG TABLET PO SCH (21:14)
[2021-04-27] VITALS: BP 127/51
[2021-04-27 04:00] VITALS: BP 127/64
[2021-04-27] MEDS: HYDRALAZINE HCL 100MG TABLET PO SCH ×3 (06:00→21:44)
[2021-04-27] MEDS: SODIUM CHLORIDE 0.9% INJ 3ML FLUSH IVF SCH ×3 (06:41→21:45)
[2021-04-27] MEDS: LEVOTHYROXINE SODIUM 175MCG TABLET PO SCH (06:41)
[2021-04-27 08:00] VITALS: BP 146/61
[2021-04-27] MEDS: AMLODIPINE 10MG TABLET NG SCH (09:29)
[2021-04-27] MEDS: MINOXIDIL 2.5MG TABLET PO SCH ×2 (09:30→17:09)
[2021-04-27 12:00] VITALS: BP 135/54
[2021-04-27 16:00] VITALS: BP 157/64
[2021-04-27 18:05] LABS: EOSINOPHILS % 1.9 % (0.0-5.0); HEMATOCRIT. 25.7 % (36.0-48.0); HEMOGLOBIN. 8.8 g/dL (12.0-16.0); LYMPHOCYTES % 9.7 % (20.0-50.0); MEAN CORPUSCULAR VOLUME 90.7 fL (81.0-99.0); MEAN PLATELET VOLUME 8.7 fl (7.4-10.4); MONOCYTES % 9.8 % (2.0-8.0); NEUTROPHILS % 77.6 % (40.0-76.0); PLATELET 155 x1000/uL (130-400); RED BLOOD CELL COUNT 2.83 mill/uL (4.2-5.4)
[2021-04-27 20:00] VITALS: BP 122/69
[2021-04-27] MEDS: ATORVASTATIN CALCIUM 40MG TABLET PO SCH (21:44)
[2021-04-28] VITALS (7 sets, daily range): BP systolic 114–146; BP diastolic 52–75
[2021-04-28] MEDS: SODIUM CHLORIDE 0.9% INJ 3ML FLUSH IVF SCH ×3 (06:00→21:22)
[2021-04-28] MEDS: LEVOTHYROXINE SODIUM 175MCG TABLET PO SCH (06:46)
[2021-04-28] MEDS: HYDRALAZINE HCL 100MG TABLET PO SCH ×3 (06:46→21:22)
[2021-04-28] MEDS: MINOXIDIL 2.5MG TABLET PO SCH ×2 (09:00→17:44)
[2021-04-28] MEDS: AMLODIPINE 10MG TABLET NG SCH (09:00)
[2021-04-28] MEDS ORDERED: MORPHINE SULFATE 2 MG/ML CPJ (NOT FOR IM USE) IV PRN (16:30)
[2021-04-28 17:49] LABS: HEMATOCRIT 24.4 % (36.0-48.0); HEMOGLOBIN 8.5 g/dL (12.0-16.0)
[2021-04-28 18:14] LABS: T4 FREE 1.16 ng/dL (0.76-1.46)
[2021-04-28 20:51] LABS: HEPATITIS B SURFACE ANTIGEN NEGATIVE
[2021-04-28] MEDS: ATORVASTATIN CALCIUM 40MG TABLET PO SCH (21:22)
[2021-04-29 04:00] VITALS: BP 131/53
[2021-04-29] MEDS: SODIUM CHLORIDE 0.9% INJ 3ML FLUSH IVF SCH ×3 (06:46→21:00)
[2021-04-29] MEDS: HYDRALAZINE HCL 100MG TABLET PO SCH ×3 (06:46→21:00)
[2021-04-29] MEDS: LEVOTHYROXINE SODIUM 175MCG TABLET PO SCH (06:48)
[2021-04-29 08:00] VITALS: BP 131/51
[2021-04-29] MEDS: MINOXIDIL 2.5MG TABLET PO SCH ×2 (09:00→17:00)
[2021-04-29] MEDS: AMLODIPINE 10MG TABLET NG SCH (09:00)
[2021-04-29] MEDS: DIPHENOXYLATE/ATROPINE 2.5/0.025MG TABLET PO PRN (11:21)
[2021-04-29 12:00] VITALS: BP 117/48
[2021-04-29 16:00] VITALS: BP 112/58
[2021-04-29 20:00] VITALS: BP 135/56
[2021-04-29] MEDS: ATORVASTATIN CALCIUM 40MG TABLET PO SCH (20:55)
[2021-04-30] VITALS: BP 128/60
[2021-04-30 05:06] VITALS: BP 187/90
[2021-04-30] MEDS: HYDRALAZINE HCL 100MG TABLET PO SCH ×3 (05:30→22:28)
[2021-04-30] MEDS: SODIUM CHLORIDE 0.9% INJ 3ML FLUSH IVF SCH ×3 (05:31→22:28)
[2021-04-30] MEDS: LEVOTHYROXINE SODIUM 200MCG TABLET PO SCH (06:45)
[2021-04-30 08:00] VITALS: BP 123/69
[2021-04-30] MEDS: AMLODIPINE 10MG TABLET NG SCH (10:34)
[2021-04-30] MEDS: MINOXIDIL 2.5MG TABLET PO SCH ×2 (10:34→17:00)
[2021-04-30 12:00] VITALS: BP 146/67
[2021-04-30 18:00] VITALS: BP 107/47
[2021-04-30 20:00] VITALS: BP 122/51
[2021-04-30] MEDS: ATORVASTATIN CALCIUM 40MG TABLET PO SCH (22:27)
[2021-05-01] VITALS: BP 141/58
[2021-05-01 03:45] VITALS: BP 126/50
[2021-05-01] MEDS: SODIUM CHLORIDE 0.9% INJ 3ML FLUSH IVF SCH ×3 (05:38→21:10)
[2021-05-01] MEDS: HYDRALAZINE HCL 100MG TABLET PO SCH ×3 (05:39→21:10)
[2021-05-01] MEDS: LEVOTHYROXINE SODIUM 200MCG TABLET PO SCH (06:18)
[2021-05-01 08:34] VITALS: BP 161/61
[2021-05-01] MEDS: MINOXIDIL 2.5MG TABLET PO SCH ×2 (08:35→19:06)
[2021-05-01] MEDS: AMLODIPINE 10MG TABLET NG SCH (08:35)
[2021-05-01 12:00] VITALS: BP 131/50
[2021-05-01 16:00] VITALS: BP 160/69
[2021-05-01 20:00] VITALS: BP_SYST 128; BP_SYST 177; BP_DIAS 65; BP_DIAS 80
[2021-05-01] MEDS: ATORVASTATIN CALCIUM 40MG TABLET PO SCH (21:10)
[2021-05-02] VITALS: BP 123/54
[2021-05-02 04:00] VITALS: BP 137/56
[2021-05-02] MEDS: HYDRALAZINE HCL 100MG TABLET PO SCH ×3 (06:00→21:52)
[2021-05-02] MEDS: SODIUM CHLORIDE 0.9% INJ 3ML FLUSH IVF SCH ×3 (06:25→21:52)
[2021-05-02] MEDS: LEVOTHYROXINE SODIUM 200MCG TABLET PO SCH (06:25)
[2021-05-02 08:00] VITALS: BP 149/70
[2021-05-02] MEDS: AMLODIPINE 10MG TABLET NG SCH (09:39)
[2021-05-02] MEDS: MINOXIDIL 2.5MG TABLET PO SCH ×2 (09:40→17:28)
[2021-05-02 12:00] VITALS: BP 137/54
[2021-05-02 16:00] VITALS: BP 142/56
[2021-05-02 20:26] VITALS: BP 137/54
[2021-05-02] MEDS ORDERED: EPOETIN ALFA-EPBX 10,000 UNIT/ML VIAL SUBCUT SCH (21:00)
[2021-05-02] MEDS ORDERED: EPOETIN ALFA 4000UNITS/ML VIAL SUBCUT SCH (21:00)
[2021-05-02] MEDS: ATORVASTATIN CALCIUM 40MG TABLET PO SCH (21:52)
[2021-05-02] MEDS: EPOETIN ALFA-EPBX 10,000 UNIT/ML VIAL SUBCUT SCH (21:52)
[2021-05-03 00:11] VITALS: BP 137/51
[2021-05-03 03:57] VITALS: BP 139/62
[2021-05-03] MEDS: LEVOTHYROXINE SODIUM 200MCG TABLET PO SCH (06:22)
[2021-05-03] MEDS: SODIUM CHLORIDE 0.9% INJ 3ML FLUSH IVF SCH ×3 (06:22→21:32)
[2021-05-03] MEDS: HYDRALAZINE HCL 100MG TABLET PO SCH ×3 (06:22→21:32)
[2021-05-03 07:51] LABS: BASOPHILS % 0.8 % (0.0-2.0); EOSINOPHILS % 2.9 % (0.0-5.0); HEMATOCRIT. 26.6 % (36.0-48.0); HEMOGLOBIN. 9.2 g/dL (12.0-16.0); LYMPHOCYTES % 20.1 % (20.0-50.0); MEAN CORPUSCULAR HEMOGLOBIN 30.6 pg (28.0-32.0); MEAN PLATELET VOLUME 8.5 fl (7.4-10.4); MONOCYTES % 10.9 % (2.0-8.0); NEUTROPHILS % 65.3 % (40.0-76.0); PLATELET 135 x1000/uL (130-400); RED BLOOD CELL COUNT 2.99 mill/uL (4.2-5.4); RED CELL DISTRIBUTION WIDTH 15.7 % (11.6-14.6)
[2021-05-03 08:00] VITALS: BP 120/58
[2021-05-03] MEDS: AMLODIPINE 10MG TABLET NG SCH (08:40)
[2021-05-03] MEDS: MINOXIDIL 2.5MG TABLET PO SCH ×2 (08:40→18:23)
[2021-05-03 12:00] VITALS: BP 143/54
[2021-05-03 16:00] VITALS: BP 119/46
[2021-05-03 20:00] VITALS: BP 149/58
[2021-05-03] MEDS: ATORVASTATIN CALCIUM 40MG TABLET PO SCH (21:31)
[2021-05-04] VITALS: BP 135/57
[2021-05-04 04:00] VITALS: BP 139/57
[2021-05-04] MEDS: SODIUM CHLORIDE 0.9% INJ 3ML FLUSH IVF SCH ×3 (05:18→21:28)
[2021-05-04] MEDS: HYDRALAZINE HCL 100MG TABLET PO SCH ×3 (05:18→21:28)
[2021-05-04 08:00] VITALS: BP 140/50
[2021-05-04] MEDS: LEVOTHYROXINE SODIUM 200MCG TABLET PO SCH (08:42)
[2021-05-04] MEDS: MINOXIDIL 2.5MG TABLET PO SCH ×2 (08:47→17:26)
[2021-05-04] MEDS: AMLODIPINE 10MG TABLET NG SCH (08:47)
[2021-05-04 12:00] VITALS: BP 122/82
[2021-05-04 16:00] VITALS: BP 142/53
[2021-05-04 20:00] VITALS: BP 137/59
[2021-05-04] MEDS: ATORVASTATIN CALCIUM 40MG TABLET PO SCH (21:28)
[2021-05-04] MEDS: EPOETIN ALFA-EPBX 10,000 UNIT/ML VIAL SUBCUT SCH (21:29)
[2021-05-04] MEDS: EPOETIN ALFA 4000UNITS/ML VIAL SUBCUT SCH (21:29)
[2021-05-05] VITALS: BP 136/51
[2021-05-05 04:00] VITALS: BP 134/67
[2021-05-05] MEDS: SODIUM CHLORIDE 0.9% INJ 3ML FLUSH IVF SCH ×3 (06:23→21:19)
[2021-05-05] MEDS: HYDRALAZINE HCL 100MG TABLET PO SCH ×3 (06:23→21:19)
[2021-05-05] MEDS: LEVOTHYROXINE SODIUM 200MCG TABLET PO SCH (06:23)
[2021-05-05 08:00] VITALS: BP 151/60
[2021-05-05] MEDS: AMLODIPINE 10MG TABLET NG SCH (10:14)
[2021-05-05] MEDS: MINOXIDIL 2.5MG TABLET PO SCH ×2 (10:15→17:00)
[2021-05-05 12:00] VITALS: BP 100/53
[2021-05-05 16:00] VITALS: BP 135/53
[2021-05-05 20:00] VITALS: BP 131/55
[2021-05-05] MEDS: ATORVASTATIN CALCIUM 40MG TABLET PO SCH (21:19)
[2021-05-06] VITALS: BP 144/66
[2021-05-06 04:00] VITALS: BP 105/40
[2021-05-06] MEDS: HYDRALAZINE HCL 100MG TABLET PO SCH ×3 (05:13→21:57)
[2021-05-06] MEDS: SODIUM CHLORIDE 0.9% INJ 3ML FLUSH IVF SCH ×3 (06:33→22:29)
[2021-05-06] MEDS: LEVOTHYROXINE SODIUM 200MCG TABLET PO SCH (06:33)
[2021-05-06 08:00] VITALS: BP 157/60
[2021-05-06] MEDS: AMLODIPINE 10MG TABLET NG SCH (09:37)
[2021-05-06] MEDS: DIPHENOXYLATE/ATROPINE 2.5/0.025MG TABLET PO PRN (09:37)
[2021-05-06] MEDS: MINOXIDIL 2.5MG TABLET PO SCH ×2 (09:38→16:52)
[2021-05-06 10:33] LABS: BASOPHILS % 0.8 % (0.0-2.0); EOSINOPHILS % 2.7 % (0.0-5.0); HEMATOCRIT. 24.7 % (36.0-48.0); HEMOGLOBIN. 8.4 g/dL (12.0-16.0); LYMPHOCYTES % 15.1 % (20.0-50.0); MEAN CORPUSCULAR HEMOGLOBIN 30.4 pg (28.0-32.0); MEAN CORPUSCULAR VOLUME 89.4 fL (81.0-99.0); MEAN PLATELET VOLUME 8.7 fl (7.4-10.4); MONOCYTES % 11.5 % (2.0-8.0); NEUTROPHILS % 69.9 % (40.0-76.0); PLATELET 133 x1000/uL (130-400); RED BLOOD CELL COUNT 2.76 mill/uL (4.2-5.4); RED CELL DISTRIBUTION WIDTH 15.6 % (11.6-14.6)
[2021-05-06 12:00] VITALS: BP 133/55
[2021-05-06 16:00] VITALS: BP 130/52
[2021-05-06] MEDS: METRONIDAZOLE 500MG TABLET PO SCH (16:52)
[2021-05-06] MEDS: VANCOMYCIN 1000MG/20ML ORAL SOLN PO SCH ×2 (16:53→23:45)
[2021-05-06] MEDS ORDERED: VANCOMYCIN HCL 1 GM/VIAL PO SCH (18:00)
[2021-05-06 20:00] VITALS: BP 155/54
[2021-05-06] MEDS: ATORVASTATIN CALCIUM 40MG TABLET PO SCH (22:29)
[2021-05-06] MEDS: EPOETIN ALFA 4000UNITS/ML VIAL SUBCUT SCH (23:45)
[2021-05-06] MEDS: EPOETIN ALFA-EPBX 10,000 UNIT/ML VIAL SUBCUT SCH (23:45)
[2021-05-07] VITALS: BP 153/75
[2021-05-07 04:00] VITALS: BP 165/66
[2021-05-07] MEDS: HYDRALAZINE HCL 100MG TABLET PO SCH ×3 (06:06→21:17)
[2021-05-07] MEDS: VANCOMYCIN 1000MG/20ML ORAL SOLN PO SCH ×3 (06:06→18:08)
[2021-05-07] MEDS: LEVOTHYROXINE SODIUM 200MCG TABLET PO SCH (06:06)
[2021-05-07] MEDS: METRONIDAZOLE 500MG TABLET PO SCH ×2 (06:08→18:06)
[2021-05-07] MEDS: SODIUM CHLORIDE 0.9% INJ 3ML FLUSH IVF SCH ×3 (06:08→21:21)
[2021-05-07 07:40] LABS: EOSINOPHILS % 3.3 % (0.0-5.0); HEMATOCRIT. 23.2 % (36.0-48.0); HEMOGLOBIN. 7.9 g/dL (12.0-16.0); LYMPHOCYTES % 13.2 % (20.0-50.0); MEAN CORPUSCULAR HEMOGLOBIN 30.2 pg (28.0-32.0); MEAN PLATELET VOLUME 8.7 fl (7.4-10.4); MONOCYTES % 13.3 % (2.0-8.0); NEUTROPHILS % 69.2 % (40.0-76.0); PLATELET 136 x1000/uL (130-400); RED BLOOD CELL COUNT 2.61 mill/uL (4.2-5.4); RED CELL DISTRIBUTION WIDTH 15.7 % (11.6-14.6)
[2021-05-07 08:00] VITALS: BP 173/64
[2021-05-07] MEDS: AMLODIPINE 10MG TABLET NG SCH (08:54)
[2021-05-07] MEDS: MINOXIDIL 2.5MG TABLET PO SCH ×2 (08:55→18:08)
[2021-05-07] MEDS: CLONIDINE 0.1MG TABLET PO PRN (08:59)
[2021-05-07] MEDS ORDERED: CARVEDILOL 3.125 MG TABLET PO NR (11:30)
[2021-05-07 12:00] VITALS: BP 112/47
[2021-05-07 16:00] VITALS: BP 115/65
[2021-05-07 20:00] VITALS: BP 100/36
[2021-05-07] MEDS: CARVEDILOL 3.125 MG TABLET PO SCH (21:00)
[2021-05-07] MEDS: ATORVASTATIN CALCIUM 40MG TABLET PO SCH (21:21)
[2021-05-08] VITALS: BP 117/40
[2021-05-08] MEDS: VANCOMYCIN 1000MG/20ML ORAL SOLN PO SCH ×4 (00:29→18:24)
[2021-05-08 04:00] VITALS: BP 128/52
[2021-05-08] MEDS: METRONIDAZOLE 500MG TABLET PO SCH ×2 (05:10→18:24)
[2021-05-08] MEDS: SODIUM CHLORIDE 0.9% INJ 3ML FLUSH IVF SCH ×3 (05:11→21:52)
[2021-05-08] MEDS: HYDRALAZINE HCL 100MG TABLET PO SCH ×3 (05:11→21:51)
[2021-05-08] MEDS: LEVOTHYROXINE SODIUM 200MCG TABLET PO SCH (06:20)
[2021-05-08 08:00] VITALS: BP 116/46
[2021-05-08] MEDS: CARVEDILOL 3.125 MG TABLET PO SCH (09:18)
[2021-05-08] MEDS: MINOXIDIL 2.5MG TABLET PO SCH (09:21)
[2021-05-08] MEDS: AMLODIPINE 10MG TABLET NG SCH (09:22)
[2021-05-08 12:00] VITALS: BP 103/30
[2021-05-08 16:00] VITALS: BP 110/47
[2021-05-08 20:00] VITALS: BP 141/55
[2021-05-08 21:49] LABS: HEPATITIS B SURFACE ANTIGEN NEGATIVE
[2021-05-08] MEDS: ATORVASTATIN CALCIUM 40MG TABLET PO SCH (21:51)
[2021-05-09] MEDS: VANCOMYCIN 1000MG/20ML ORAL SOLN PO SCH ×4 (01:14→18:00)
[2021-05-09] MEDS: HYDRALAZINE HCL 100MG TABLET PO SCH (06:17)
[2021-05-09] MEDS: SODIUM CHLORIDE 0.9% INJ 3ML FLUSH IVF SCH ×3 (06:18→21:45)
[2021-05-09] MEDS: LEVOTHYROXINE SODIUM 200MCG TABLET PO SCH (06:18)
[2021-05-09] MEDS: METRONIDAZOLE 500MG TABLET PO SCH ×2 (06:18→18:02)
[2021-05-09 08:00] VITALS: BP 114/42
[2021-05-09 12:00] VITALS: BP 126/56
[2021-05-09 16:00] VITALS: BP 129/55
[2021-05-09 17:08] LABS: T4 FREE 1.4 ng/dL (0.76-1.46)
[2021-05-09 20:00] VITALS: BP 121/52
[2021-05-09] MEDS: EPOETIN ALFA 4000UNITS/ML VIAL SUBCUT SCH (21:44)
[2021-05-09] MEDS: ATORVASTATIN CALCIUM 40MG TABLET PO SCH (21:45)
[2021-05-09] MEDS: EPOETIN ALFA 10000UNITS/ML VIAL SUBCUT SCH (21:45)
[2021-05-10] VITALS: BP 140/56
[2021-05-10 04:00] VITALS: BP 155/54
[2021-05-10] MEDS: VANCOMYCIN 1000MG/20ML ORAL SOLN PO SCH ×5 (06:00→23:13)
[2021-05-10] MEDS: LEVOTHYROXINE SODIUM 200MCG TABLET PO SCH (06:24)
[2021-05-10] MEDS: SODIUM CHLORIDE 0.9% INJ 3ML FLUSH IVF SCH ×3 (06:24→21:31)
[2021-05-10] MEDS: METRONIDAZOLE 500MG TABLET PO SCH ×2 (06:24→17:01)
[2021-05-10 08:00] VITALS: BP 196/73
[2021-05-10] MEDS: CLONIDINE 0.1MG TABLET PO PRN (08:43)
[2021-05-10 11:05] VITALS: BP 114/51
[2021-05-10 12:13] LABS: BASOPHILS % 0.9 % (0.0-2.0); EOSINOPHILS % 2.3 % (0.0-5.0); HEMATOCRIT. 23.8 % (36.0-48.0); LYMPHOCYTES % 17.3 % (20.0-50.0); MEAN CORPUSCULAR HEMOGLOBIN 30.4 pg (28.0-32.0); MEAN CORPUSCULAR VOLUME 89.8 fL (81.0-99.0); MEAN PLATELET VOLUME 8.2 fl (7.4-10.4); MONOCYTES % 12.1 % (2.0-8.0); NEUTROPHILS % 67.4 % (40.0-76.0); PLATELET 143 x1000/uL (130-400); RED BLOOD CELL COUNT 2.64 mill/uL (4.2-5.4); RED CELL DISTRIBUTION WIDTH 15.6 % (11.6-14.6)
[2021-05-10 16:00] VITALS: BP 166/55
[2021-05-10 20:00] VITALS: BP 158/60
[2021-05-10] MEDS: ATORVASTATIN CALCIUM 40MG TABLET PO SCH (21:31)
[2021-05-10] MEDS ORDERED: HYDRALAZINE 20 MG in SODIUM CHLORIDE 0.9% 49 ML IV PRN (22:15)
[2021-05-11] VITALS: BP 166/65
[2021-05-11] MEDS ORDERED: AMLODIPINE 5MG TABLET PO SCH (02:15)
[2021-05-11 04:00] VITALS: BP 137/63
[2021-05-11] MEDS: VANCOMYCIN 1000MG/20ML ORAL SOLN PO SCH ×3 (06:00→18:00)
[2021-05-11] MEDS: METRONIDAZOLE 500MG TABLET PO SCH (06:18)
[2021-05-11] MEDS: LEVOTHYROXINE SODIUM 200MCG TABLET PO SCH (06:18)
[2021-05-11] MEDS: DIPHENOXYLATE/ATROPINE 2.5/0.025MG TABLET PO PRN (06:19)
[2021-05-11] MEDS: SODIUM CHLORIDE 0.9% INJ 3ML FLUSH IVF SCH (06:19)
[2021-05-11 08:00] VITALS: BP 162/51
[2021-05-11] MEDS: AMLODIPINE 5MG TABLET PO SCH (09:00)
[2021-05-11 10:15] VITALS: BP 139/53
[2021-05-11 16:00] VITALS: BP 120/54
[2021-05-11] MEDS: CLONIDINE 0.1MG TABLET PO PRN (18:46)
[2021-05-11 20:00] VITALS: BP 164/63
[2021-05-11] MEDS: ATORVASTATIN CALCIUM 40MG TABLET PO SCH (21:00)
[2021-05-11] MEDS: EPOETIN ALFA 4000UNITS/ML VIAL SUBCUT SCH (22:08)
[2021-05-11] MEDS: EPOETIN ALFA 10000UNITS/ML VIAL SUBCUT SCH (22:09)
[2021-05-12] VITALS: BP 167/62
[2021-05-12 04:00] VITALS: BP 135/63
[2021-05-12 08:00] VITALS: BP 174/60
[2021-05-12 08:12] LABS: BASOPHILS % 1.1 % (0.0-2.0); EOSINOPHILS % 2.5 % (0.0-5.0); HEMATOCRIT. 23.5 % (36.0-48.0); HEMOGLOBIN. 8.1 g/dL (12.0-16.0); LYMPHOCYTES % 17.2 % (20.0-50.0); MEAN CORPUSCULAR VOLUME 90.3 fL (81.0-99.0); MEAN PLATELET VOLUME 8.1 fl (7.4-10.4); MONOCYTES % 11.7 % (2.0-8.0); NEUTROPHILS % 67.5 % (40.0-76.0); PLATELET 144 x1000/uL (130-400); RED CELL DISTRIBUTION WIDTH 16.2 % (11.6-14.6)
[2021-05-12] MEDS: LEVOTHYROXINE SODIUM 200MCG TABLET PO SCH (09:10)
[2021-05-12] MEDS: CLONIDINE 0.1MG TABLET PO PRN (09:10)
[2021-05-12] MEDS: AMLODIPINE 5MG TABLET PO SCH (09:10)
[2021-05-12 12:00] VITALS: BP 138/54
[2021-05-12 16:00] VITALS: BP 149/60
[2021-05-12 20:00] VITALS: BP 151/89
[2021-05-13] VITALS: BP 141/66
[2021-05-13 04:00] VITALS: BP 107/62
[2021-05-13] MEDS: LEVOTHYROXINE SODIUM 200MCG TABLET PO SCH (06:31)
[2021-05-13 08:00] VITALS: BP 127/61
[2021-05-13 12:00] VITALS: BP 126/74
[2021-05-13 16:00] VITALS: BP 147/50
[2021-05-13 20:00] VITALS: BP 207/74
[2021-05-13] MEDS: EPOETIN ALFA-EPBX 10,000 UNIT/ML VIAL SUBCUT SCH (21:36)
[2021-05-13] MEDS: EPOETIN ALFA-EPBX 4,000 UNIT/ML VIAL SUBCUT SCH (21:37)
[2021-05-13] MEDS: CLONIDINE 0.1MG TABLET PO PRN (21:37)
[2021-05-14] VITALS: BP 130/73
[2021-05-14 04:00] VITALS: BP 159/58
[2021-05-14] MEDS: LEVOTHYROXINE SODIUM 200MCG TABLET PO SCH (05:52)
[2021-05-14] MEDS: CLONIDINE 0.1MG TABLET PO PRN ×2 (07:09→16:59)
[2021-05-14 08:04] VITALS: BP 188/62
[2021-05-14] MEDS: AMLODIPINE 10MG TABLET PO SCH (08:59)
[2021-05-14 12:00] VITALS: BP 137/58
[2021-05-14 16:00] VITALS: BP 180/66
[2021-05-14 20:00] VITALS: BP 152/75
[2021-05-15] VITALS: BP 152/75
[2021-05-15] MEDS: LEVOTHYROXINE SODIUM 200MCG TABLET PO SCH (06:36)
[2021-05-15 08:00] VITALS: BP 157/69
[2021-05-15] MEDS: AMLODIPINE 10MG TABLET PO SCH (09:19)
[2021-05-15 12:00] VITALS: BP 148/64
[2021-05-15 16:00] VITALS: BP 149/68
[2021-05-15 20:00] VITALS: BP 126/68
[2021-05-16] MEDS: CLONIDINE 0.1MG TABLET PO PRN ×2 (00:22→10:02)
[2021-05-16] MEDS: LEVOTHYROXINE SODIUM 200MCG TABLET PO SCH (06:20)
[2021-05-16 06:40] LABS: BASOPHILS % 1.2 % (0.0-2.0); EOSINOPHILS % 2.6 % (0.0-5.0); HEMATOCRIT. 27.6 % (36.0-48.0); HEMOGLOBIN. 9.5 g/dL (12.0-16.0); LYMPHOCYTES % 18.1 % (20.0-50.0); MEAN CORPUSCULAR HEMOGLOBIN 30.4 pg (28.0-32.0); MEAN CORPUSCULAR VOLUME 88.3 fL (81.0-99.0); MONOCYTES % 12.4 % (2.0-8.0); NEUTROPHILS % 65.7 % (40.0-76.0); PLATELET 113 x1000/uL (130-400); RED BLOOD CELL COUNT 3.12 mill/uL (4.2-5.4); RED CELL DISTRIBUTION WIDTH 16.4 % (11.6-14.6)
[2021-05-16 08:00] VITALS: BP 195/73
[2021-05-16] MEDS: AMLODIPINE 10MG TABLET PO SCH (09:01)
[2021-05-16 12:00] VITALS: BP 170/69
[2021-05-16 16:00] VITALS: BP 170/69
[2021-05-16] MEDS ORDERED: HYDRALAZINE HCL 50MG TABLET PO NR (17:10)
[2021-05-16 20:00] VITALS: BP 152/71
[2021-05-16] MEDS: EPOETIN ALFA-EPBX 4,000 UNIT/ML VIAL SUBCUT SCH (23:02)
[2021-05-16] MEDS: EPOETIN ALFA-EPBX 10,000 UNIT/ML VIAL SUBCUT SCH (23:03)
[2021-05-17] VITALS: BP 177/68
[2021-05-17] MEDS: HYDRALAZINE HCL 100MG TABLET PO SCH ×3 (01:00→20:27)
[2021-05-17 04:00] VITALS: BP 166/59
[2021-05-17] MEDS: LEVOTHYROXINE SODIUM 200MCG TABLET PO SCH (06:27)
[2021-05-17 08:00] VITALS: BP 165/60
[2021-05-17] MEDS: AMLODIPINE 10MG TABLET PO SCH (09:30)
[2021-05-17 12:00] VITALS: BP 153/55
[2021-05-17 16:00] VITALS: BP 184/71
[2021-05-17 20:00] VITALS: BP 168/57
[2021-05-17] MEDS: SERTRALINE HCL 25MG TABLET PO SCH (21:54)
[2021-05-18] VITALS: BP 138/54
[2021-05-18 04:00] VITALS: BP 171/67
[2021-05-18] MEDS: CLONIDINE 0.1MG TABLET PO PRN (06:32)
[2021-05-18] MEDS: LEVOTHYROXINE SODIUM 200MCG TABLET PO SCH (06:32)
[2021-05-18 07:40] LABS: BASOPHILS % 0.8 % (0.0-2.0); EOSINOPHILS % 1.2 % (0.0-5.0); HEMATOCRIT. 24.4 % (36.0-48.0); HEMOGLOBIN. 8.3 g/dL (12.0-16.0); LYMPHOCYTES % 18.1 % (20.0-50.0); MEAN CORPUSCULAR HEMOGLOBIN 30.1 pg (28.0-32.0); MEAN CORPUSCULAR VOLUME 88.2 fL (81.0-99.0); MEAN PLATELET VOLUME 7.8 fl (7.4-10.4); MONOCYTES % 14.4 % (2.0-8.0); NEUTROPHILS % 65.5 % (40.0-76.0); PLATELET 129 x1000/uL (130-400); RED BLOOD CELL COUNT 2.76 mill/uL (4.2-5.4); RED CELL DISTRIBUTION WIDTH 16.4 % (11.6-14.6)
[2021-05-18 08:00] VITALS: BP 163/58
[2021-05-18] MEDS: AMLODIPINE 10MG TABLET PO SCH (09:19)
[2021-05-18] MEDS: SERTRALINE HCL 25MG TABLET PO SCH (09:19)
[2021-05-18] MEDS: HYDRALAZINE HCL 100MG TABLET PO SCH ×2 (09:19→20:18)
[2021-05-18 12:00] VITALS: BP 140/53
[2021-05-18] MEDS ORDERED: IPRATROPIUM/ALBUTEROL 0.5-3(2.5)MG/3ML NEB HHN PRN (15:45)
[2021-05-18] MEDS ORDERED: BISACODYL 10MG SUPP PR PRN (15:45)
[2021-05-18] MEDS ORDERED: HYDROCODONE/ACETAMINOPHEN 5/325MG TABLET PO PRN (15:45)
[2021-05-18 16:00] VITALS: BP 170/53
[2021-05-18] MEDS ORDERED: NITROGLYCERIN OINT 1GM/INCH UDPKT TD PRN (17:00)
[2021-05-18 20:00] VITALS: BP 215/81
[2021-05-18] MEDS: EPOETIN ALFA-EPBX 4,000 UNIT/ML VIAL SUBCUT SCH (20:19)
[2021-05-18] MEDS: EPOETIN ALFA-EPBX 10,000 UNIT/ML VIAL SUBCUT SCH (20:19)
[2021-05-19] VITALS: BP 195/71
[2021-05-19] MEDS ORDERED: CLONIDINE 0.1MG TABLET PO PRN (01:00)
[2021-05-19 05:25] VITALS: BP 157/58
[2021-05-19] MEDS: LEVOTHYROXINE SODIUM 200MCG TABLET PO SCH (06:25)
[2021-05-19 06:32] LABS: EOSINOPHILS % 1.8 % (0.0-5.0); HEMOGLOBIN. 8.5 g/dL (12.0-16.0); LYMPHOCYTES % 20.1 % (20.0-50.0); MEAN CORPUSCULAR VOLUME 88.3 fL (81.0-99.0); MEAN PLATELET VOLUME 7.4 fl (7.4-10.4); MONOCYTES % 12.7 % (2.0-8.0); NEUTROPHILS % 64.4 % (40.0-76.0); PLATELET 125 x1000/uL (130-400); RED BLOOD CELL COUNT 2.84 mill/uL (4.2-5.4); RED CELL DISTRIBUTION WIDTH 16.6 % (11.6-14.6)
[2021-05-19 08:00] VITALS: BP 152/56
[2021-05-19] MEDS: HYDRALAZINE HCL 100MG TABLET PO SCH ×2 (09:33→21:28)
[2021-05-19] MEDS: AMLODIPINE 10MG TABLET PO SCH (09:34)
[2021-05-19] MEDS: SERTRALINE HCL 25MG TABLET PO SCH (09:34)
[2021-05-19 12:00] VITALS: BP 153/56
[2021-05-19 16:00] VITALS: BP 154/52
[2021-05-19 20:00] VITALS: BP 179/65
[2021-05-19] MEDS ORDERED: NALOXONE HCL 0.4MG/ML VIAL IV PRN (20:00)
[2021-05-20] VITALS: BP 130/49
[2021-05-20 04:00] VITALS: BP 155/55
[2021-05-20 06:47] LABS: BASOPHILS % 0.9 % (0.0-2.0); EOSINOPHILS % 1.4 % (0.0-5.0); HEMATOCRIT. 24.8 % (36.0-48.0); HEMOGLOBIN. 8.4 g/dL (12.0-16.0); LYMPHOCYTES % 21.1 % (20.0-50.0); MEAN CORPUSCULAR VOLUME 88.8 fL (81.0-99.0); MEAN PLATELET VOLUME 7.9 fl (7.4-10.4); MONOCYTES % 13.9 % (2.0-8.0); NEUTROPHILS % 62.7 % (40.0-76.0); PLATELET 131 x1000/uL (130-400); RED CELL DISTRIBUTION WIDTH 16.3 % (11.6-14.6)
[2021-05-20] MEDS: LEVOTHYROXINE SODIUM 200MCG TABLET PO SCH (06:59)
[2021-05-20 08:00] VITALS: BP 147/67
[2021-05-20] MEDS: HYDRALAZINE HCL 100MG TABLET PO SCH ×3 (10:32→17:16)
[2021-05-20] MEDS: SERTRALINE HCL 25MG TABLET PO SCH (10:32)
[2021-05-20] MEDS: AMLODIPINE 10MG TABLET PO SCH (11:57)
[2021-05-20 12:00] VITALS: BP 178/68
[2021-05-20] MEDS ORDERED: CLONIDINE 0.1MG TABLET PO PRN (13:45)
[2021-05-20] MEDS: MINOXIDIL 2.5MG TABLET PO SCH (14:15)
[2021-05-20 16:00] VITALS: BP 139/79
[2021-05-21] MEDS: LEVOTHYROXINE SODIUM 200MCG TABLET PO SCH (06:11)
[2021-05-21 08:00] VITALS: BP 160/46
[2021-05-21] MEDS: AMLODIPINE 10MG TABLET PO SCH (08:20)
[2021-05-21] MEDS: HYDRALAZINE HCL 100MG TABLET PO SCH ×3 (08:21→17:30)
[2021-05-21] MEDS: SERTRALINE HCL 25MG TABLET PO SCH (08:21)
[2021-05-21] MEDS: MINOXIDIL 2.5MG TABLET PO SCH (08:21)
[2021-05-21 16:00] VITALS: BP 163/57
[2021-05-21 20:00] VITALS: BP 167/64
[2021-05-21 23:56] LABS: HEMATOCRIT 27.3 % (36.0-48.0); HEMOGLOBIN 9.2 g/dL (12.0-16.0); MEAN CORPUSCULAR HEMOGLOBIN 29.9 pg (28.0-32.0); MEAN CORPUSCULAR VOLUME 89.1 fL (81.0-99.0); PLATELET 137 x1000/uL (130-400); RED BLOOD CELL COUNT 3.07 mill/uL (4.2-5.4); RED CELL DISTRIBUTION WIDTH 16.5 % (11.6-14.6)
[2021-05-22] VITALS: BP 110/68
[2021-05-22 04:00] VITALS: BP 177/58
[2021-05-22 08:00] VITALS: BP 186/65
[2021-05-22] MEDS: AMLODIPINE 10MG TABLET PO SCH (08:25)
[2021-05-22] MEDS: LEVOTHYROXINE SODIUM 200MCG TABLET PO SCH (08:25)
[2021-05-22] MEDS: SERTRALINE HCL 25MG TABLET PO SCH (08:26)
[2021-05-22] MEDS: MINOXIDIL 2.5MG TABLET PO SCH (08:26)
[2021-05-22] MEDS: HYDRALAZINE HCL 100MG TABLET PO SCH ×3 (08:26→16:50)
[2021-05-22 12:00] VITALS: BP 157/59
[2021-05-22] MEDS: DIPHENOXYLATE/ATROPINE 2.5/0.025MG TABLET PO PRN (12:54)
[2021-05-22 16:00] VITALS: BP 160/61
[2021-05-22 20:00] VITALS: BP 126/61
[2021-05-23] VITALS: BP 147/50
[2021-05-23 04:00] VITALS: BP 151/53
[2021-05-23 05:45] LABS: EOSINOPHILS % 2.9 % (0.0-5.0); HEMATOCRIT. 27.6 % (36.0-48.0); HEMOGLOBIN. 9.2 g/dL (12.0-16.0); MEAN CORPUSCULAR HEMOGLOBIN 29.8 pg (28.0-32.0); MEAN CORPUSCULAR VOLUME 88.8 fL (81.0-99.0); MEAN PLATELET VOLUME 7.9 fl (7.4-10.4); MONOCYTES % 13.2 % (2.0-8.0); NEUTROPHILS % 66.9 % (40.0-76.0); PLATELET 149 x1000/uL (130-400); RED BLOOD CELL COUNT 3.11 mill/uL (4.2-5.4); RED CELL DISTRIBUTION WIDTH 16.5 % (11.6-14.6)
[2021-05-23 08:00] VITALS: BP 119/61
[2021-05-23] MEDS: SERTRALINE HCL 25MG TABLET PO SCH (08:08)
[2021-05-23] MEDS: LEVOTHYROXINE SODIUM 200MCG TABLET PO SCH (08:08)
[2021-05-23] MEDS: HYDRALAZINE HCL 100MG TABLET PO SCH ×3 (11:49→17:05)
[2021-05-23] MEDS: MINOXIDIL 2.5MG TABLET PO SCH (11:50)
[2021-05-23] MEDS: AMLODIPINE 10MG TABLET PO SCH (11:50)
[2021-05-23 12:00] VITALS: BP 165/83
[2021-05-23] MEDS ORDERED: HYDRALAZINE 10 MG in SODIUM CHLORIDE 0.9% 49.5 ML IV NR (15:00)
[2021-05-23 16:00] VITALS: BP 149/65
[2021-05-23 20:00] VITALS: BP 145/50
[2021-05-23] MEDS: NITROGLYCERIN OINT 1GM/INCH UDPKT TD SCH (21:58)
[2021-05-23] MEDS: EPOETIN ALFA-EPBX 10,000 UNIT/ML VIAL SUBCUT SCH (21:58)
[2021-05-24] VITALS: BP 150/61
[2021-05-24 04:00] VITALS: BP 142/55
[2021-05-24] MEDS: LEVOTHYROXINE SODIUM 200MCG TABLET PO SCH (06:32)
[2021-05-24] MEDS: NITROGLYCERIN OINT 1GM/INCH UDPKT TD SCH ×3 (06:33→21:21)
[2021-05-24 07:09] LABS: BASOPHILS % 0.7 % (0.0-2.0); HEMATOCRIT. 27.7 % (36.0-48.0); HEMOGLOBIN. 9.2 g/dL (12.0-16.0); MEAN CORPUSCULAR HEMOGLOBIN 29.4 pg (28.0-32.0); MEAN CORPUSCULAR VOLUME 88.5 fL (81.0-99.0); MEAN PLATELET VOLUME 7.9 fl (7.4-10.4); MONOCYTES % 14.9 % (2.0-8.0); NEUTROPHILS % 65.4 % (40.0-76.0); PLATELET 152 x1000/uL (130-400); RED BLOOD CELL COUNT 3.13 mill/uL (4.2-5.4); RED CELL DISTRIBUTION WIDTH 16.7 % (11.6-14.6)
[2021-05-24 08:00] VITALS: BP 147/60
[2021-05-24] MEDS: MINOXIDIL 2.5MG TABLET PO SCH (08:42)
[2021-05-24] MEDS: HYDRALAZINE HCL 100MG TABLET PO SCH ×3 (08:42→17:10)
[2021-05-24] MEDS: SERTRALINE HCL 25MG TABLET PO SCH (08:42)
[2021-05-24] MEDS: AMLODIPINE 10MG TABLET PO SCH (08:43)
[2021-05-24 12:03] VITALS: BP 147/60
[2021-05-24 16:00] VITALS: BP 134/52
[2021-05-24 17:14] LABS: HEPATITIS B SURFACE ANTIGEN NEGATIVE
[2021-05-24 20:00] VITALS: BP 153/68
[2021-05-25] VITALS: BP 146/56
[2021-05-25 04:00] VITALS: BP 169/59
[2021-05-25] MEDS: NITROGLYCERIN OINT 1GM/INCH UDPKT TD SCH ×3 (06:27→22:31)
[2021-05-25] MEDS: LEVOTHYROXINE SODIUM 200MCG TABLET PO SCH (06:27)
[2021-05-25 08:00] VITALS: BP 108/54
[2021-05-25] MEDS: AMLODIPINE 10MG TABLET PO SCH ×2 (09:00→12:31)
[2021-05-25] MEDS: MINOXIDIL 2.5MG TABLET PO SCH ×2 (09:00→12:32)
[2021-05-25] MEDS: SERTRALINE HCL 25MG TABLET PO SCH ×2 (09:00→12:34)
[2021-05-25] MEDS: HYDRALAZINE HCL 100MG TABLET PO SCH ×3 (09:00→17:45)
[2021-05-25 12:00] VITALS: BP 179/69
[2021-05-25 16:00] VITALS: BP 139/46
[2021-05-25 20:00] VITALS: BP 155/55
[2021-05-25] MEDS: EPOETIN ALFA-EPBX 10,000 UNIT/ML VIAL SUBCUT SCH (22:31)
[2021-05-26] VITALS: BP 110/56
[2021-05-26] MEDS: NITROGLYCERIN OINT 1GM/INCH UDPKT TD SCH ×3 (06:30→22:07)
[2021-05-26] MEDS: LEVOTHYROXINE SODIUM 200MCG TABLET PO SCH (06:30)
[2021-05-26] MEDS: SERTRALINE HCL 25MG TABLET PO SCH (11:26)
[2021-05-26] MEDS: MINOXIDIL 2.5MG TABLET PO SCH (11:27)
[2021-05-26] MEDS: AMLODIPINE 10MG TABLET PO SCH (11:27)
[2021-05-26] MEDS: HYDRALAZINE HCL 100MG TABLET PO SCH ×3 (11:28→17:25)
[2021-05-26 20:00] VITALS: BP 158/51
[2021-05-27] VITALS: BP 152/61
[2021-05-27 04:00] VITALS: BP 156/60
[2021-05-27] MEDS: NITROGLYCERIN OINT 1GM/INCH UDPKT TD SCH ×3 (07:48→21:51)
[2021-05-27] MEDS: LEVOTHYROXINE SODIUM 200MCG TABLET PO SCH (07:50)
[2021-05-27 08:00] VITALS: BP 162/62
[2021-05-27] MEDS: MINOXIDIL 2.5MG TABLET PO SCH (09:19)
[2021-05-27] MEDS: AMLODIPINE 10MG TABLET PO SCH (09:19)
[2021-05-27] MEDS: SERTRALINE HCL 25MG TABLET PO SCH (09:19)
[2021-05-27] MEDS: HYDRALAZINE HCL 100MG TABLET PO SCH ×3 (09:19→17:42)
[2021-05-27 12:00] VITALS: BP 151/62
[2021-05-27 16:00] VITALS: BP 166/70
[2021-05-27] MEDS ORDERED: LOSA25TA26 MT (19:40)
[2021-05-27] MEDS ORDERED: AMLO10TA80 MT (19:40)
[2021-05-27] MEDS ORDERED: SEVE800T8 PO (19:40)
[2021-05-27] MEDS ORDERED: CLON0.3T PO (19:40)
[2021-05-27 20:00] VITALS: BP 178/70
[2021-05-27] MEDS: EPOETIN ALFA-EPBX 10,000 UNIT/ML VIAL SUBCUT SCH (21:51)
[2021-05-28] VITALS: BP 154/59
[2021-05-28 04:00] VITALS: BP_SYST 145; BP_SYST 154; BP_DIAS 59; BP_DIAS 68
[2021-05-28] MEDS: LEVOTHYROXINE SODIUM 200MCG TABLET PO SCH (06:28)
[2021-05-28] MEDS: NITROGLYCERIN OINT 1GM/INCH UDPKT TD SCH ×2 (06:28→15:20)
[2021-05-28 08:00] VITALS: BP 141/64
[2021-05-28] MEDS: MINOXIDIL 2.5MG TABLET PO SCH (08:08)
[2021-05-28] MEDS: SERTRALINE HCL 25MG TABLET PO SCH (08:09)
[2021-05-28] MEDS: HYDRALAZINE HCL 100MG TABLET PO SCH ×2 (08:09→13:29)
[2021-05-28] MEDS: AMLODIPINE 10MG TABLET PO SCH (08:09)
[2021-05-28 09:42] VITALS: BP_SYST 136; BP_SYST 141; BP_SYST 150; BP_DIAS 60; BP_DIAS 61; BP_DIAS 64
[2021-05-28 12:00] VITALS: BP 150/61
[2021-05-28 16:00] VITALS: BP 138/63
== END 2021-05-28 17:20 | disposition home health service (06) | DRG 91 ==
LOC: ER 21:21 → 5EST 04-13 01:57 → EDBEDREQ 04-13 02:33 → EDBEDREQTM 04-13 02:33 → EDBEDREQDT 04-13 02:33 → ENRESERV 04-13 08:24 → 6WST 04-21 17:21 → 6EST 05-06 17:39
PROVIDERS: ADMIT Internal Medicine; ATTEND Internal Medicine
PROC: 5A1D70Z Performance of Urinary Filtration, Intermittent, Less than 6 Hours Per Day (ICD-10-PCS; 2021-04-13)
PROC: 5A1D70Z Performance of Urinary Filtration, Intermittent, Less than 6 Hours Per Day (ICD-10-PCS; 2021-04-14)
PROC: 5A1D70Z Performance of Urinary Filtration, Intermittent, Less than 6 Hours Per Day (ICD-10-PCS; 2021-04-18)
PROC: 5A1D70Z Performance of Urinary Filtration, Intermittent, Less than 6 Hours Per Day (ICD-10-PCS; 2021-04-20)
PROC: 5A1D70Z Performance of Urinary Filtration, Intermittent, Less than 6 Hours Per Day (ICD-10-PCS; 2021-04-22)
PROC: 5A1D70Z Performance of Urinary Filtration, Intermittent, Less than 6 Hours Per Day (ICD-10-PCS; 2021-04-25)
PROC: 5A1D70Z Performance of Urinary Filtration, Intermittent, Less than 6 Hours Per Day (ICD-10-PCS; 2021-04-27)
PROC: 5A1D70Z Performance of Urinary Filtration, Intermittent, Less than 6 Hours Per Day (ICD-10-PCS; 2021-04-29)
PROC: 5A1D70Z Performance of Urinary Filtration, Intermittent, Less than 6 Hours Per Day (ICD-10-PCS; 2021-05-04)
PROC: 5A1D70Z Performance of Urinary Filtration, Intermittent, Less than 6 Hours Per Day (ICD-10-PCS; 2021-05-06)
PROC: 5A1D70Z Performance of Urinary Filtration, Intermittent, Less than 6 Hours Per Day (ICD-10-PCS; 2021-05-09)
PROC: 5A1D70Z Performance of Urinary Filtration, Intermittent, Less than 6 Hours Per Day (ICD-10-PCS; 2021-05-11)
PROC: 5A1D70Z Performance of Urinary Filtration, Intermittent, Less than 6 Hours Per Day (ICD-10-PCS; 2021-05-13)
PROC: 5A1D70Z Performance of Urinary Filtration, Intermittent, Less than 6 Hours Per Day (ICD-10-PCS; 2021-05-18)
PROC: 5A1D70Z Performance of Urinary Filtration, Intermittent, Less than 6 Hours Per Day (ICD-10-PCS; 2021-05-20)
PROC: 5A1D70Z Performance of Urinary Filtration, Intermittent, Less than 6 Hours Per Day (ICD-10-PCS; 2021-05-23)
PROC: 5A1D70Z Performance of Urinary Filtration, Intermittent, Less than 6 Hours Per Day (ICD-10-PCS; 2021-05-25)
PROC: 5A1D70Z Performance of Urinary Filtration, Intermittent, Less than 6 Hours Per Day (ICD-10-PCS; principal; 2021-05-27)
DX: G92.8 Other toxic encephalopathy (principal); N18.6 End stage renal disease; E87.1 Hypo-osmolality and hyponatremia; I12.0 Hypertensive chronic kidney disease with stage 5 chronic kidney disease or end stage renal disease; E03.9 Hypothyroidism, unspecified; E11.22 Type 2 diabetes mellitus with diabetic chronic kidney disease; E78.00 Pure hypercholesterolemia, unspecified; E78.5 Hyperlipidemia, unspecified; E87.5 Hyperkalemia; I16.0 Hypertensive urgency; Z20.822 Contact with and (suspected) exposure to COVID-19; T46.5X5A Adverse effect of other antihypertensive drugs, initial encounter; I65.22 Occlusion and stenosis of left carotid artery; R53.81 Other malaise; R19.7 Diarrhea, unspecified; R00.1 Bradycardia, unspecified; Z99.2 Dependence on renal dialysis; Z82.49 Family history of ischemic heart disease and other diseases of the circulatory system; Z79.899 Other long term (current) drug therapy; Z88.0 Allergy status to penicillin; I69.320 Aphasia following cerebral infarction; Y92.89 Other specified places as the place of occurrence of the external cause
CPT/HCPCS: 36415; 70496; 70498; 70551; 71045; 74176; 80048; 80053; 80061; 80305; 80320; 81003; 82270; 82962; 83735; 84439; 84443; 84481; 84484; 85014; 85018; 85025; 85027; 86705; 86709; 86803; 87015; 87045; 87340; 87426; 87427; 87449; 89055; 92610; 93005; 93971; 97110; 97112; 97116; 97162; 97166; 97530; 97535; 99291; A6261; C1893; J0360; J0885; J1815; J1940; J2405; J3370; J3490; J7040; Q9967; A4315; G0480

== ENCOUNTER 2022-07-29 18:22 | Emergency (ER) | payer MEDICARE, MEDICAID ==
[~2022-07-29] VITALS: Ht 167.6 cm; Wt 68.0 kg
[~2022-07-29 18:22] MED LIST changes: +AMLO10TA80 MT; -FURO-151; -HYDR100T26; +SEVE800T8 PO
[2022-07-29 18:52] VITALS: BP 178/93
[2022-07-29 21:05] LABS: BASOPHILS % 0.8 % (0.0-2.0); EOSINOPHILS % 1.7 % (0.0-5.0); HEMATOCRIT. 39.9 % (36.0-48.0); HEMOGLOBIN. 12.3 g/dL (12.0-16.0); LYMPHOCYTES % 18.9 % (20.0-50.0); MEAN CORPUSCULAR HEMOGLOBIN 29.1 pg (28.0-32.0); MEAN CORPUSCULAR VOLUME 94.2 fL (81.0-99.0); MEAN PLATELET VOLUME 7.8 fl (7.4-10.4); MONOCYTES % 11.4 % (2.0-8.0); NEUTROPHILS % 67.2 % (40.0-76.0); PLATELET 172 x1000/uL (130-400); RED BLOOD CELL COUNT 4.24 mill/uL (4.2-5.4); RED CELL DISTRIBUTION WIDTH 20.4 % (11.6-14.6)
[2022-07-29 21:06] LABS: CHLORIDE 98 mEq/L (98-107)
[2022-07-29 21:07] LABS: PROTHROMBIN TIME 10.7 sec (9.6-11.0)
[2022-07-30] MEDS ORDERED: T3 PO (00:10)
[2022-07-30] MEDS ORDERED: SULF1TAB47 MT (00:10)
== END 2022-07-30 01:09 | disposition home or self-care (01) ==
LOC: ER 18:22
DX: M79.671 Pain in right foot (principal); I10 Essential (primary) hypertension; Z99.2 Dependence on renal dialysis; Z88.0 Allergy status to penicillin; Z79.899 Other long term (current) drug therapy
CPT/HCPCS: 36415; 80053; 85025; 93922; 99284

== ENCOUNTER 2022-08-17 16:09 | Inpatient (IN) | payer MEDICARE, OTHER ==
[~2022-08-17] VITALS: Ht 157.5 cm; Wt 69.4 kg
[~2022-08-17 16:09] MED LIST changes: -ATOR40TA70; +ATOR40TA70 PO
[2022-08-17] MEDS ORDERED: LEVOFLOXACIN 750MG PREMIX 150 ML IV ONE (18:00)
[2022-08-17] MEDS ORDERED: VANCOMYCIN 1G PREMIX 200 ML IV SCH (18:00)
[2022-08-17] MEDS ORDERED: SODIUM CHLORIDE 0.9% 1000ML BAG (SEPSIS BOLUS) IV ONE (18:00)
[2022-08-17 19:30] LABS: CHLORIDE 94 mEq/L (98-107)
[2022-08-17 20:06] LABS: BASOPHILS % 0.8 % (0.0-2.0); EOSINOPHILS % 1.1 % (0.0-5.0); HEMATOCRIT. 28.1 % (36.0-48.0); HEMOGLOBIN. 9.1 g/dL (12.0-16.0); LYMPHOCYTES % 13.7 % (20.0-50.0); MEAN CORPUSCULAR HEMOGLOBIN 29.3 pg (28.0-32.0); MEAN CORPUSCULAR VOLUME 90.6 fL (81.0-99.0); MONOCYTES % 5.9 % (2.0-8.0); NEUTROPHILS % 78.5 % (40.0-76.0); RED CELL DISTRIBUTION WIDTH 19.4 % (11.6-14.6)
[2022-08-17 20:19] LABS: PLATELET 331 x1000/uL (130-400)
[2022-08-17 21:38] LABS: HEPATITIS B SURFACE ANTIGEN NEGATIVE
[2022-08-17 23:00] VITALS: BP 153/65; PULSE 61; RESP 20; TEMP 98.2
[2022-08-17 23:30] VITALS: BP 153/65; PULSE 61; RESP 20; TEMP 98.2
[2022-08-18] VITALS (15 sets, daily range): BP systolic 104–147; BP diastolic 50–68; PULSE 50–68; RESP 16–20; TEMP 96.8–98.7
[2022-08-18] MEDS ORDERED: *PATIENT'S OWN MEDICATION STORAGE XX SCH (01:45)
[2022-08-18 05:22] LABS: BASOPHILS % 0.7 % (0.0-2.0); EOSINOPHILS % 1.7 % (0.0-5.0); HEMOGLOBIN. 7.8 g/dL (12.0-16.0); LYMPHOCYTES % 13.8 % (20.0-50.0); MEAN CORPUSCULAR HEMOGLOBIN 29.5 pg (28.0-32.0); MEAN CORPUSCULAR VOLUME 90.4 fL (81.0-99.0); MEAN PLATELET VOLUME 8.3 fl (7.4-10.4); MONOCYTES % 8.9 % (2.0-8.0); NEUTROPHILS % 74.9 % (40.0-76.0); PLATELET 216 x1000/uL (130-400); RED BLOOD CELL COUNT 2.66 mill/uL (4.2-5.4); RED CELL DISTRIBUTION WIDTH 19.9 % (11.6-14.6)
[2022-08-18] MEDS: PANTOPRAZOLE 40MG DR TABLET PO SCH (06:31)
[2022-08-18] MEDS: ASPIRIN 81MG TABLET PO SCH (09:30)
[2022-08-18] MEDS: LEVOTHYROXINE SODIUM 150MCG TABLET PO SCH (09:30)
[2022-08-18] MEDS: HEPARIN 5000 UNITS/ML VIAL SUBCUT SCH ×2 (09:32→21:01)
[2022-08-18] MEDS: SEVELAMER CARBONATE 800 MG TABLET PO SCH ×3 (09:39→17:05)
[2022-08-18] MEDS: HYDRALAZINE HCL 50MG TABLET PO SCH ×3 (09:40→17:06)
[2022-08-18] MEDS: AMLODIPINE 10MG TABLET PO SCH (09:40)
[2022-08-18] MEDS: CLOPIDOGREL 75MG TABLET PO SCH (12:30)
[2022-08-18 17:58] LABS: TOTAL IRON BINDING CAPACITY 221 ug/dL (250-450)
[2022-08-18] MEDS ORDERED: VANCOMYCIN 500MG PREMIX 100 ML IV NR (18:00)
[2022-08-18] MEDS ORDERED: EPOETIN ALFA-EPBX 4,000 UNIT/ML VIAL SUBCUT SCH (21:00)
[2022-08-18] MEDS: ATORVASTATIN CALCIUM 40MG TABLET PO SCH (21:01)
[2022-08-19] VITALS (9 sets, daily range): BP systolic 101–143; BP diastolic 51–64; PULSE 57–70; RESP 17–20; TEMP 96.9–98.6
[2022-08-19] MEDS: PANTOPRAZOLE 40MG DR TABLET PO SCH (06:30)
[2022-08-19] MEDS ORDERED: LIDOCAINE HCL 1% 10 MG/ML 10ML VIAL ONE (07:02)
[2022-08-19] MEDS ORDERED: IOHEXOL-350 100 ML BOTTLE ONE (08:57)
[2022-08-19] MEDS: CLOPIDOGREL 75MG TABLET PO SCH (09:46)
[2022-08-19] MEDS: ASPIRIN 81MG TABLET PO SCH (09:46)
[2022-08-19] MEDS: AMLODIPINE 10MG TABLET PO SCH (09:46)
[2022-08-19] MEDS: SEVELAMER CARBONATE 800 MG TABLET PO SCH ×3 (09:46→18:23)
[2022-08-19] MEDS: HYDRALAZINE HCL 50MG TABLET PO SCH ×3 (09:46→18:23)
[2022-08-19] MEDS: HEPARIN 5000 UNITS/ML VIAL SUBCUT SCH (09:47)
[2022-08-19] MEDS: LEVOTHYROXINE SODIUM 150MCG TABLET PO SCH (09:49)
[2022-08-19 11:50] LABS: MEAN CORPUSCULAR HEMOGLOBIN 29.9 pg (28.0-32.0); MEAN CORPUSCULAR VOLUME 89.2 fL (81.0-99.0); PLATELET 206 x1000/uL (130-400); RED BLOOD CELL COUNT 2.26 mill/uL (4.2-5.4); RED CELL DISTRIBUTION WIDTH 19.3 % (11.6-14.6)
[2022-08-19 11:57] LABS: HEMOGLOBIN 6.8 g/dL (12.0-16.0)
[2022-08-19 11:58] LABS: HEMATOCRIT 20.2 % (36.0-48.0)
[2022-08-19] MEDS ORDERED: IPRATROPIUM/ALBUTEROL 0.5-3(2.5)MG/3ML NEB ONE (11:59)
[2022-08-19 12:06] LABS: TOTAL IRON BINDING CAPACITY 150 ug/dL (250-450)
[2022-08-19 12:35] LABS: VITAMIN B12 SERUM 312 pg/mL (211-911)
[2022-08-19] MEDS: CEFTRIAXONE 1,000 MG in DEXTROSE 5% WATER 50 ML IV SCH (14:01)
[2022-08-19] MEDS ORDERED: LEVOFLOXACIN 500MG PREMIX 100 ML IV SCH (20:00)
[2022-08-19] MEDS: ATORVASTATIN CALCIUM 40MG TABLET PO SCH (21:35)
[2022-08-20] VITALS (8 sets, daily range): BP systolic 113–146; BP diastolic 51–88; PULSE 50–98; RESP 16–20; TEMP 97–98.6
[2022-08-20 02:32] LABS: HEMATOCRIT 25.2 % (36.0-48.0); HEMOGLOBIN 8.7 g/dL (12.0-16.0)
[2022-08-20] MEDS: MORPHINE SULFATE 2 MG/ML CPJ (NOT FOR IM USE) IV PRN ×2 (02:34→23:19)
[2022-08-20 02:45] LABS: PROTHROMBIN TIME 10.4 sec (9.6-11.0)
[2022-08-20 06:20] LABS: BASOPHILS % 0.5 % (0.0-2.0); HEMATOCRIT. 24.2 % (36.0-48.0); HEMOGLOBIN. 8.2 g/dL (12.0-16.0); LYMPHOCYTES % 13.9 % (20.0-50.0); MEAN CORPUSCULAR HEMOGLOBIN 29.8 pg (28.0-32.0); MEAN CORPUSCULAR VOLUME 87.8 fL (81.0-99.0); MEAN PLATELET VOLUME 7.8 fl (7.4-10.4); MONOCYTES % 7.4 % (2.0-8.0); NEUTROPHILS % 76.2 % (40.0-76.0); PLATELET 197 x1000/uL (130-400); RED BLOOD CELL COUNT 2.75 mill/uL (4.2-5.4); RED CELL DISTRIBUTION WIDTH 17.7 % (11.6-14.6)
[2022-08-20] MEDS: PANTOPRAZOLE 40MG DR TABLET PO SCH (07:33)
[2022-08-20] MEDS: LEVOTHYROXINE SODIUM 150MCG TABLET PO SCH (07:34)
[2022-08-20] MEDS: AMLODIPINE 10MG TABLET PO SCH (09:02)
[2022-08-20] MEDS: SEVELAMER CARBONATE 800 MG TABLET PO SCH ×3 (09:02→17:22)
[2022-08-20] MEDS: ASPIRIN 81MG TABLET PO SCH (09:02)
[2022-08-20] MEDS: CLOPIDOGREL 75MG TABLET PO SCH (09:03)
[2022-08-20] MEDS: HYDRALAZINE HCL 50MG TABLET PO SCH ×3 (09:03→18:12)
[2022-08-20] MEDS: CEFTRIAXONE 1,000 MG in DEXTROSE 5% WATER 50 ML IV SCH (13:36)
[2022-08-20] MEDS: ATORVASTATIN CALCIUM 40MG TABLET PO SCH (21:59)
[2022-08-21] VITALS (13 sets, daily range): BP systolic 104–134; BP diastolic 42–55; PULSE 58–88; RESP 16–20; TEMP 97.7–98.6
[2022-08-21] MEDS: LEVOTHYROXINE SODIUM 150MCG TABLET PO SCH ×2 (07:10→14:36)
[2022-08-21] MEDS: PANTOPRAZOLE 40MG DR TABLET PO SCH ×2 (07:10→14:36)
[2022-08-21] MEDS: HYDRALAZINE HCL 50MG TABLET PO SCH ×2 (08:29→11:34)
[2022-08-21] MEDS: CLOPIDOGREL 75MG TABLET PO SCH ×2 (09:00→14:36)
[2022-08-21] MEDS: ASPIRIN 81MG TABLET PO SCH (09:00)
[2022-08-21] MEDS: AMLODIPINE 10MG TABLET PO SCH (09:00)
[2022-08-21] MEDS ORDERED: IRON SUCROSE COMPLEX 100 MG/5 ML ML IV NR (09:45)
[2022-08-21] MEDS ORDERED: CYANOCOBALAMIN 1000MCG/ML VIAL IM NR (11:00)
[2022-08-21] MEDS: SEVELAMER CARBONATE 800 MG TABLET PO SCH ×4 (11:04→16:41)
[2022-08-21 11:32] LABS: HEMATOCRIT. 24.9 % (36.0-48.0); HEMOGLOBIN. 8.5 g/dL (12.0-16.0); MEAN CORPUSCULAR VOLUME 87.7 fL (81.0-99.0); MEAN PLATELET VOLUME 7.9 fl (7.4-10.4); PLATELET 196 x1000/uL (130-400); RED BLOOD CELL COUNT 2.83 mill/uL (4.2-5.4)
[2022-08-21 13:29] LABS: PLATELET ESTIMATE NORMAL
[2022-08-21] MEDS: CEFTRIAXONE 1,000 MG in DEXTROSE 5% WATER 50 ML IV SCH (14:04)
[2022-08-21] MEDS ORDERED: VANCOMYCIN 500MG PREMIX 100 ML IV NR (15:00)
[2022-08-21] MEDS: MORPHINE SULFATE 2 MG/ML CPJ (NOT FOR IM USE) IV PRN (16:41)
[2022-08-21] MEDS ORDERED: NALOXONE HCL 0.4MG/ML VIAL IV PRN (19:00)
[2022-08-21] MEDS ORDERED: SUCCINYLCHOLINE CHLORIDE 200MG/10ML IV ONE (20:58)
[2022-08-21] MEDS: EPOETIN ALFA-EPBX 4,000 UNIT/ML VIAL SUBCUT SCH (21:15)
[2022-08-21] MEDS: ATORVASTATIN CALCIUM 40MG TABLET PO SCH (21:16)
[2022-08-22] VITALS (7 sets, daily range): BP systolic 122–149; BP diastolic 27–66; PULSE 57–77; RESP 14–20; TEMP 97.8–98.6
[2022-08-22] MEDS: MORPHINE SULFATE 2 MG/ML CPJ (NOT FOR IM USE) IV PRN ×2 (06:25→22:17)
[2022-08-22] MEDS: LEVOTHYROXINE SODIUM 150MCG TABLET PO SCH (06:29)
[2022-08-22] MEDS: PANTOPRAZOLE 40MG DR TABLET PO SCH (06:29)
[2022-08-22] MEDS ORDERED: IRON SUCROSE COMPLEX 100 MG/5 ML ML IV NR (08:00)
[2022-08-22] MEDS: SEVELAMER CARBONATE 800 MG TABLET PO SCH ×3 (09:00→18:29)
[2022-08-22] MEDS: AMLODIPINE 10MG TABLET PO SCH (10:17)
[2022-08-22 10:48] LABS: BASOPHILS % 0.6 % (0.0-2.0); EOSINOPHILS % 2.4 % (0.0-5.0); HEMATOCRIT. 24.4 % (36.0-48.0); HEMOGLOBIN. 8.2 g/dL (12.0-16.0); LYMPHOCYTES % 10.8 % (20.0-50.0); MEAN CORPUSCULAR HEMOGLOBIN 29.9 pg (28.0-32.0); MEAN CORPUSCULAR VOLUME 88.9 fL (81.0-99.0); MEAN PLATELET VOLUME 7.8 fl (7.4-10.4); MONOCYTES % 9.3 % (2.0-8.0); NEUTROPHILS % 76.9 % (40.0-76.0); PLATELET 188 x1000/uL (130-400); RED BLOOD CELL COUNT 2.75 mill/uL (4.2-5.4)
[2022-08-22] MEDS ORDERED: IODIXANOL 320MG/ML 100 ML BOTTLE IV ONE (11:58)
[2022-08-22] MEDS ORDERED: ASPIRIN/SOD BICARB/CITRIC ACID 324MG TAB EFF ONE (11:59)
[2022-08-22] MEDS ORDERED: LIDOCAINE HCL 1% 20ML VIAL (Pyxis) INJ ONE (11:59)
[2022-08-22] MEDS ORDERED: HEPARIN 1000 UNITS/ML 10ML ONE (11:59)
[2022-08-22] MEDS ORDERED: FENTANYL CITRATE/PF 50MCG/ML 2ML VIAL ONE (12:30)
[2022-08-22] MEDS ORDERED: MIDAZOLAM HCL 2 MG/2 ML VIAL ONE (12:31)
[2022-08-22 12:39] LABS: HEPATITIS B SURFACE ANTIGEN NEGATIVE
[2022-08-22] MEDS ORDERED: CLOPIDOGREL 75MG TABLET ONE (13:58)
[2022-08-22] MEDS ORDERED: ACETAMINOPHEN 325MG TABLET PO PRN (14:15)
[2022-08-22] MEDS ORDERED: CLOPIDOGREL 75MG TABLET PO NR (14:15)
[2022-08-22] MEDS ORDERED: ATROPINE SULFATE 1MG/10ML SYR IV PRN (14:15)
[2022-08-22] MEDS ORDERED: ONDANSETRON HCL 4MG/2ML INJ IV PRN (14:15)
[2022-08-22] MEDS ORDERED: MORPHINE SULFATE 2 MG/ML CPJ (NOT FOR IM USE) IV PRN (14:15)
[2022-08-22] MEDS: ATORVASTATIN CALCIUM 40MG TABLET PO SCH (22:03)
[2022-08-22] MEDS: CEFTRIAXONE 1,000 MG in DEXTROSE 5% WATER 50 ML IV SCH (22:03)
[2022-08-23] VITALS (13 sets, daily range): BP systolic 96–157; BP diastolic 42–77; PULSE 58–88; RESP 10–28; TEMP 98.4–99.2
[2022-08-23] MEDS: LEVOTHYROXINE SODIUM 150MCG TABLET PO SCH (06:31)
[2022-08-23] MEDS: PANTOPRAZOLE 40MG DR TABLET PO SCH (06:31)
[2022-08-23 08:08] LABS: BASOPHILS % 0.5 % (0.0-2.0); EOSINOPHILS % 2.4 % (0.0-5.0); HEMATOCRIT. 24.4 % (36.0-48.0); HEMOGLOBIN. 8.2 g/dL (12.0-16.0); LYMPHOCYTES % 8.1 % (20.0-50.0); MEAN CORPUSCULAR HEMOGLOBIN 30.3 pg (28.0-32.0); MEAN PLATELET VOLUME 8.1 fl (7.4-10.4); MONOCYTES % 8.2 % (2.0-8.0); NEUTROPHILS % 80.8 % (40.0-76.0); PLATELET 200 x1000/uL (130-400); RED BLOOD CELL COUNT 2.71 mill/uL (4.2-5.4); RED CELL DISTRIBUTION WIDTH 18.3 % (11.6-14.6)
[2022-08-23] MEDS: AMLODIPINE 10MG TABLET PO SCH (09:00)
[2022-08-23] MEDS: SEVELAMER CARBONATE 800 MG TABLET PO SCH ×3 (10:56→17:19)
[2022-08-23] MEDS: ASPIRIN 81MG TABLET PO SCH (10:56)
[2022-08-23] MEDS: CLOPIDOGREL 75MG TABLET PO SCH (13:30)
[2022-08-23] MEDS: CEFTRIAXONE 1,000 MG in DEXTROSE 5% WATER 50 ML IV SCH (22:06)
[2022-08-23] MEDS: EPOETIN ALFA-EPBX 4,000 UNIT/ML VIAL SUBCUT SCH (22:07)
[2022-08-23] MEDS: ATORVASTATIN CALCIUM 40MG TABLET PO SCH (22:07)
[2022-08-24] VITALS: BP 139/71; PULSE 69; RESP 8; TEMP 99.1
[2022-08-24 04:00] VITALS: BP 148/66; PULSE 62; TEMP 98.6
[2022-08-24] MEDS: LEVOTHYROXINE SODIUM 150MCG TABLET PO SCH (05:55)
[2022-08-24] MEDS: PANTOPRAZOLE 40MG DR TABLET PO SCH (05:56)
[2022-08-24 07:05] LABS: BASOPHILS % 0.5 % (0.0-2.0); EOSINOPHILS % 1.8 % (0.0-5.0); HEMATOCRIT. 22.4 % (36.0-48.0); HEMOGLOBIN. 7.5 g/dL (12.0-16.0); LYMPHOCYTES % 8.5 % (20.0-50.0); MEAN CORPUSCULAR HEMOGLOBIN 29.8 pg (28.0-32.0); MEAN CORPUSCULAR VOLUME 89.2 fL (81.0-99.0); MONOCYTES % 11.3 % (2.0-8.0); NEUTROPHILS % 77.9 % (40.0-76.0); PLATELET 173 x1000/uL (130-400); RED BLOOD CELL COUNT 2.51 mill/uL (4.2-5.4); RED CELL DISTRIBUTION WIDTH 17.6 % (11.6-14.6)
[2022-08-24 08:13] VITALS: BP 146/74; PULSE 67; RESP 16; TEMP 98
[2022-08-24] MEDS: SEVELAMER CARBONATE 800 MG TABLET PO SCH ×3 (09:08→17:38)
[2022-08-24] MEDS: ASPIRIN 81MG TABLET PO SCH (09:08)
[2022-08-24] MEDS: CLOPIDOGREL 75MG TABLET PO SCH (09:09)
[2022-08-24] MEDS: AMLODIPINE 10MG TABLET PO SCH (09:10)
[2022-08-24 12:00] VITALS: BP 132/59; PULSE 56; RESP 22; TEMP 98.1
[2022-08-24 12:49] VITALS: BP 146/74; PULSE 67; TEMP 98; O2SAT 95
[2022-08-24 16:00] VITALS: BP 132/63; PULSE 61; RESP 15; TEMP 97.9
== END 2022-08-24 17:00 | DRG 252 ==
LOC: ER 16:09 → 8WST 21:16 → EDBEDREQ 21:32 → EDBEDREQTM 21:32 → ENRESERV 22:48 → 8WST 23:41 → 3WST 08-22 15:07
PROVIDERS: ADMIT Internal Medicine; ATTEND Internal Medicine
PROC: 5A1D70Z Performance of Urinary Filtration, Intermittent, Less than 6 Hours Per Day (ICD-10-PCS; 2022-08-17)
PROC: 30233N1 Transfusion of Nonautologous Red Blood Cells into Peripheral Vein, Percutaneous Approach (ICD-10-PCS; 2022-08-19)
PROC: 02HV33Z Insertion of Infusion Device into Superior Vena Cava, Percutaneous Approach (ICD-10-PCS; 2022-08-19)
PROC: B518ZZA Fluoroscopy of Superior Vena Cava, Guidance (ICD-10-PCS; 2022-08-19)
PROC: B548ZZA Ultrasonography of Superior Vena Cava, Guidance (ICD-10-PCS; 2022-08-19)
PROC: 5A1D70Z Performance of Urinary Filtration, Intermittent, Less than 6 Hours Per Day (ICD-10-PCS; 2022-08-20)
PROC: 047K3Z1 Dilation of Right Femoral Artery using Drug-Coated Balloon, Percutaneous Approach (ICD-10-PCS; principal; 2022-08-22)
PROC: 04FM3ZZ Fragmentation of Right Popliteal Artery, Percutaneous Approach (ICD-10-PCS; 2022-08-22)
PROC: B41F1ZZ Fluoroscopy of Right Lower Extremity Arteries using Low Osmolar Contrast (ICD-10-PCS; 2022-08-22)
PROC: 5A1D70Z Performance of Urinary Filtration, Intermittent, Less than 6 Hours Per Day (ICD-10-PCS; 2022-08-22)
DX: E11.52 Type 2 diabetes mellitus with diabetic peripheral angiopathy with gangrene (principal); N18.6 End stage renal disease; I70.269 Atherosclerosis of native arteries of extremities with gangrene, unspecified extremity; I12.0 Hypertensive chronic kidney disease with stage 5 chronic kidney disease or end stage renal disease; E11.621 Type 2 diabetes mellitus with foot ulcer; L97.519 Non-pressure chronic ulcer of other part of right foot with unspecified severity; E11.22 Type 2 diabetes mellitus with diabetic chronic kidney disease; E03.9 Hypothyroidism, unspecified; D64.9 Anemia, unspecified; Z20.822 Contact with and (suspected) exposure to COVID-19; I48.91 Unspecified atrial fibrillation; I25.10 Atherosclerotic heart disease of native coronary artery without angina pectoris; E78.5 Hyperlipidemia, unspecified; Z99.2 Dependence on renal dialysis; Z88.0 Allergy status to penicillin; I25.2 Old myocardial infarction; Z86.73 Personal history of transient ischemic attack (TIA), and cerebral infarction without residual deficits; Z79.02 Long term (current) use of antithrombotics/antiplatelets; Z79.82 Long term (current) use of aspirin
CPT/HCPCS: 36415; 36573; 71045; 73630; 73718; 75635; 80048; 80053; 80061; 80202; 82607; 83540; 83550; 83605; 83880; 84145; 84484; 85014; 85018; 85025; 85027; 85044; 85049; 85347; 86705; 86709; 86803; 86850; 86900; 86920; 87340; 87426; 90935; 93005; 97162; 99291; C1725; C1769; J0330; J0696; J0885; J1644; J1956; J2250; J2270; J3010; J3370; J3420; J3490; J7030; J7060; P9016; Q9967